=== PATIENT | male | born 1955 | race Hispanic/Latino ===

== ENCOUNTER 2023-12-17 19:22 | Inpatient (IN) | payer MEDICARE ==
[~2023-12-17] VITALS: Ht 170.2 cm; Wt 67.0 kg
--- NOTE | 2023-12-17 19:53 | ERN ---
General Chief Complaint: Weakness Stated Complaint: LETHARGY, WEAKNESS Time Seen by MD: 19:35 Source: patient History of Present Illness Initial Comments Patient is a 68-year-old male brought in by EMS secondary to his generalized body weakness and diarrhea. Per family member at bedside patient has a extensive history of mental retardation, cerebral palsy. Per family member ady robles has been having episodes of watery stools and has been declining slowly. Allergies: Coded Allergies: fluconazole (Unverified Allergy, Unknown, 12/17/23) metronidazole (Unverified Allergy, Unknown, 12/17/23) omeprazole (Unverified Allergy, Unknown, 12/17/23) Past Medical History Past Medical History: Asthma, High Cholesterol, Hypertension, Hypothyroid, Seizure Medical History Other: IDD Past Surgical History: Other Surgical History Other: COLOSTOMY ROS Dictation Limited review of systems secondary to mental state Physical Exam Physical Exam Dictation VITAL SIGNS: Reviewed. GENERAL APPEARANCE: Disoriented, lethargic, cachectic HEAD AND FACE: Non-traumatic. EYES: PERRL, pink conjunctivas, eyelid no trauma, anterior chamber clear. EARS: Pinnas intact and no signs of trauma or erythema. Ear canals clear and no discharge. TMs no erythema. NOSE: No discharge, no bleeding. OROPHARYNX: Mouth normal, teeth no caries, tongue pink. Pharynx clear, no erythema. Tonsils no exudates, no abscesses noted. Mucous membrane moist. NECK: Supple, non-tender, no thyromegaly, no masses, no JVD, no bruits. BREAST: Deferred. CHEST: No tenderness, no crepitus, no paradoxical movement, no retractions. LUNGS: Clear, well-ventilated, symmetric, no rales, no wheezing, no rhonchi, no stridor, good breath sounds bilaterally. HEART: Regular rate, regular rhythm, no murmur, no gallops. VASCULAR: No peripheral edema. ABDOMEN: Soft, positive bowel sounds, nondistended, no guarding, nontender, no rebound, no masses no hepatomegaly, no splenomegaly, no Robledo's sign, no hernia s. RECTAL: Deferred. GENITAL: Deferred. NEUROLOGICAL: Normal speech, gross motor function intact, gross sensory function intact. MUSCULOSKELETAL: decreased range of motion muscular skeletal system secondary to cerebral palsy EXTREMITIES: Nontender, full range of motion. SKIN: Color pink, dry, no turgor, no rash, no lacerations, no abrasions, no contusions. LYMPHATICS: Deferred. Results Laboratory and Microbiology Lab and Micro Result Laboratory Tests Test 12/17/23 20:17 12/17/23 22:57 White Blood Count 11.8 K/uL (4.8-10.8) H Red Blood Count 4.92 MIL/uL (4.50-6.20) Hemoglobin 16.8 g/dL (14.0-18.0) Hematocrit 46.9 % (42-54) Mean Corpuscular Volume 95.3 fL (79-99) Mean Corpuscular Hemoglobin 34.1 pg (27.0-33.0) H Mean Corpuscular Hemoglobin Concent 35.8 g/dL (32.0-36.0) Red Cell Distribution Width 11.9 % (11.0-15.5) Platelet Count 173 K/uL (130-400) Mean Platelet Volume 9.6 fL (7.5-10.5) Immature Granulocyte % (Auto) 0.3 % (0-1) Neutrophils (%) (Auto) 83.0 % (40.0-77.0) H Lymphocytes (%) (Auto) 10.0 % (21.0-51.0) L Monocytes (%) (Auto) 5.8 % (3.0-13.0) Eosinophils (%) (Auto) 0.6 % (0.0-8.0) Basophils (%) (Auto) 0.3 % (0.0-5.0) Neutrophils # (Auto) 9.8 K/uL (1.8-7.7) H Lymphocytes # (Auto) 1.2 K/uL (1.0-4.8) Monocytes # (Auto) 0.7 K/uL (0.1-1.0) Eosinophils # (Auto) 0.07 K/uL (0.00-0.70) Basophils # (Auto) 0.04 K/uL (0.00-0.20) Absolute Immature Granulocyte (auto 0.04 K/uL (0-1) Nucleated Red Blood Cells 0.0 % (0.0-0.19) White Cell Morphology Comment See comments Total Bilirubin 0.6 mg/dL (0.2-1.0) Direct Bilirubin < 0.1 mg/dL (0.0-0.3) Aspartate Amino Transf (AST/SGOT) 75 U/L (10-37) H Alanine Aminotransferase (ALT/SGPT) 46 U/L (12-78) Alkaline Phosphatase 120 U/L (50-136) Total Protein 8.1 g/dL (6.0-8.3) Albumin 3.0 g/dL (3.5-5.0) L Lipase 14 U/L (16-77) L Sodium Level 118 mmol/L (136-145) L Potassium Level 3.7 mmol/L (3.5-5.1) Chloride Level 87 mmol/L (101-111) *L Carbon Dioxide Level 26 mmol/L (21-32) Blood Urea Nitrogen 50 mg/dL (7-18) H Creatinine 0.8 mg/dL (0.5-1.3) Glomerular Filtration Rate Calc 97 mL/min (>90) Random Glucose 148 mg/dL (70-105) H Total Calcium 8.9 mg/dL (8.5-10.1) Total Creatine Kinase 122 U/L (21-232) Labs Reviewed?: Yes EKG/XRAY/US/CT/MRI EKG Comment 03/17/2023 TIME 8:01 P.M. VENTRICULAR RATE 85 SINUS R[address]M [place] [address] WAVE ELEVATION OR DEPRESSION MDM MDM: Differential diagnosis: Diarrhea, dehydration, hyponatremia Rationale: Tests considered and ordered secondary to shared decision making include: Previous outside records reviewed: Old ER visits. Risk of complication and/or morbidity or mortality of patient management: None Medications-Per medication reconciliation Need for hospitalization: Patient does not meet criteria for hospitalization. Need for emergency major/minor surgery: No There are no social concerns with this patient. Prescription drug management Prescriptions will include symptomatic care Patient's prior external medical records from other ER visits were reviewed by me as indicated. Prior testing and results from previous visits were reviewed. Prior tests were taken into account with medical decision making and resource utilization, independent historian/historians were used to obtain complete medical history. I independently interpreted the test that were performed, results were reviewed by me and considered findings on radiology if ordered. Medical management and examination interpretation discussions were had by me with other qualified healthcare professionals as indicated for the patient's care. PATIENT WILL BE ADMITTED UNDER THE CARE OF HOSPITALIST GROUP FOR ONGOING MANAGEMENT. ED Course Orders Procedure Category Date Status Time Cbc With Differential LAB 12/17/23 Complete 19:38 Urinalysis Profile LAB 12/17/23 Logged 19:38 Stool Panel Gi By Pcr LAB 12/17/23 In Process 19:38 12 Lead Ekg Tracing- EKG 12/17/23 Resulted Technical 19:38 Lactated Ringers PHA 12/17/23 Complete 1000ml (Lactated 20:00 Chest 1vw RAD 12/17/23 Resulted 19:38 Lipase LAB 12/17/23 Complete 19:38 Hepatic Function Panel LAB 12/17/23 Complete 20:17 Basic Metabolic Panel LAB 12/17/23 Complete 20:50 Creatine Kinase, Total LAB 12/17/23 Complete 20:50 0.9%Nacl 1000ml (Ns PHA 12/18/23 Complete 1000ml) 00:00 Vital Signs(Adult CPOE 12/18/23 Transmitted Hospitalist) 00:02 Nurse To Enter Home CPOE 12/18/23 Transmitted Medication 00:02 Admit Orders ADM 12/18/23 Transmitted 00:02 Edm Admit Bridge Order ADM 12/18/23 Transmitted 00:02 Current Medications Medications (Trade) Dose Ordered Sig/Gallo Route PRN Reason Start Time Stop Time Status Last Admin Dose Admin Lactated Ringer's 1,000 ml @ 0 mls/hr ONCE ONCE IV 12/17/23 20:00 12/17/23 20:01 DC 12/17/23 21:22 Sodium Chloride 1,000 ml @ 0 mls/hr ONCE ONCE IV 12/18/23 00:00 12/18/23 00:01 DC Vital Signs Date Time Temp Pulse Resp B/P (MAP) Pulse Ox O2 Delivery O2 Flow Rate FiO2 12/17/23 19:24 97.7 101 18 106/95 96 Room Air 0 12/17/23 19:23 97.7 101 18 106/95 96 Room Air* 0 21 DX & DISP Disposition: Inpatient Decision to Admit Time: 00:05 Departure Impression: Primary Impression: Dehydration Additional Impression: Viral gastroenteritis Condition: Stable Referrals: SELF,REFERRAL (PCP) RIA PIMENTEL MD Dec 17, 2023 19:53
--- NOTE | 2023-12-17 20:16 | EKG ---
[facility] Test Date: 2023-12-17 Test Time: 20:01:07 Pat Name: SERENITY LOWE Department: ED Room: Gender: M [employer]: 108 : [id number] Requested By: RIA PIMENTEL Order Number: [id number] Reading MD: Aureliano Garcia Measurements Intervals [place] Rate: 85 P: 66 [place]: 184 QRS: -41 QRSD: 108 T: 168 QT: 335 QTc: 397 Interpretive Statements Sinus rhythm Left axis deviation Low voltage, precordial leads Nonspecific T abnrm, anterolateral leads No previous ECG available for comparison Electronically Signed On 12-17-2023 20:19:32 CDT by Aureliano Garcia Please click the below link to view image of tracing.
[2023-12-17 20:25] LABS: BASOPHILS # (AUTO) 0.04 K/uL (0.00-0.20); BASOPHILS % (AUTO) 0.3 % (0.0-5.0); EOSINOPHILS # (AUTO) 0.07 K/uL (0.00-0.70); EOSINOPHILS % (AUTO) 0.6 % (0.0-8.0); HEMATOCRIT 46.9 % (42-54); IMMATURE GRANULOCYTE ABSOLUTE 0.04 K/uL (0-1); LYMPHOCYTES # (AUTO) 1.2 K/uL (1.0-4.8); MEAN CORPUSCULAR HEMOGLOBIN 34.1 pg (27.0-33.0); MEAN CORPUSCULAR HGB CONC 35.8 g/dL (32.0-36.0); MEAN CORPUSCULAR VOLUME 95.3 fL (79-99); MONOCYTES # (AUTO) 0.7 K/uL (0.1-1.0); MONOCYTES % (AUTO) 5.8 % (3.0-13.0); NEUTROPHILS # (AUTO) 9.8 K/uL (1.8-7.7); PLATELET COUNT (AUTO) 173 K/uL (130-400); RED BLOOD CELL COUNT(AUTO) 4.92 MIL/uL (4.50-6.20); RED CELL DISTRIBUTION WIDTH 11.9 % (11.0-15.5); WHITE BLOOD COUNT (AUTO) 11.8 K/uL (4.8-10.8)
--- NOTE | 2023-12-17 20:43 | HMCIMG ---
CHEST 1VW CLINICAL HISTORY: weakness COMPARISON: None TECHNIQUE: Single view of the chest was obtained. FINDINGS: Lungs are clear. The cardiac size and mediastinum are unremarkable. There is no acute bony abnormality. The patient appears contracted IMPRESSION: No acute cardiopulmonary process identified.
[2023-12-17 21:00] LABS: ALANINE AMINOTRANSFERASE 46 U/L (12-78); ASPARTATE AMINOTRANSFERASE 75 U/L (10-37); BILIRUBIN,TOTAL 0.6 mg/dL (0.2-1.0); TOTAL PROTEIN, SERUM 8.1 g/dL (6.0-8.3)
[2023-12-17 21:04] LABS: BILIRUBIN,DIRECT < 0.1 mg/dL (0.0-0.3)
[2023-12-17] MEDS: LACTATED RINGERS 1000ML 1,000 ML IV ONE (21:22)
[2023-12-17 23:25] LABS: CREATININE 0.8 mg/dL (0.5-1.3); POTASSIUM 3.7 mmol/L (3.5-5.1)
--- NOTE | 2023-12-18 00:01 | HP ---
[facility] HISTORY AND PHYSICAL Date of Service: Dec 18, 2023 Time of Service: 00:00 PCP: Self-referral HISTORY OF PRESENT ILLNESS: This is a 68-year-old male resident of [facility] with past medical history of intellectual developmental disability, cerebral palsy , mental retardation ,anemia, asthma, hyperlipidemia, hypertension, hypothyroidism and seizure disorder who was brought by EMS to the ED for complaints of generalized body weakness, diarrhea and lethargy.Reportedly patient has been having episodes of watery stools and has been becoming weak and lethargic.Information and details are gathered from ER MD and primary nurse and [facility] as patient is unable to give information due to cognitive impairment. Seen and examined patient in the ER asleep but arousable respiration even and nonlabored he is comfortable in apparent distress. Latest vital signs temperature 98.1, heart rate 71, blood pressure 120/67, saturation 100% in room air. Labs: WBC 11.8 with negative left shift of neutrophils 83, hemoglobin 16.8, hematocrit 46.9, platelet count 173. Sodium 118, chloride 87, BUN 50, glucose 148 AST 75 albumin three lipase 14. Chest x-ray result is unremarkable. While in the ER patient received 1 L NS bolus and pending 1 L LR bolus to be given still per ER recommendation. We will recheck BMP and BNP at this time and we will admit patient for further medical management. REVIEW OF SYSTEMS unable to perform patient is nonverbal and lethargic and does not follow commands PAST MEDICAL HISTORY: [Intellectual developmental disability, anemia, Asthma, hyperlipidemia, hyp ertension, hypothyroidism and seizure disorder ] PAST SURGICAL HISTORY: [ Colostomy ] PAST SOCIAL HISTORY: [ Patient is a resident of [facility] negative alcohol, cigarette and recreational drug use] FAMILY HISTORY: [ Noncontributory] Coded Allergies: fluconazole (Unverified Allergy, Unknown, 12/17/23) metronidazole (Unverified Allergy, Unknown, 12/17/23) omeprazole (Unverified Allergy, Unknown, 12/17/23) PHYSICAL EXAM GENERAL APPEARANCE: The patient is asleep but arousable in no acute cardiopulmonary distress. NEUROLOGICAL: Arousable but nonverbal HEENT: Face is symmetric. Pupils are equal and reactive. Extraocular movements are intact. NECK: Supple. No JVD. CHEST: Normal chest expansion. No Telemetry. LUNGS: Absence of any rales, rhonchi or any wheezing. CARDIOVASCULAR: Regular. S1 and S2 normal. No appreciable rubs, murmurs or gallops. ABDOMEN: Positive colostomy Soft, nontender, and nondistended. There is no rebound, voluntary guarding, or rigidity. : Deferred. No Emmanuel. EXTREMITIES: Non-edematous and not cyanotic. No clubbing. Good capillary refill. contracted extremities SKIN: No skin breakdown. Vital Sign (Last 24 Hours) 12/17/23 12/17/23 19:23 19:24 Temp 97.7 Pulse 101 Resp 18 B/P (MAP) 106/95 Pulse Ox 96 O2 Delivery Room Air O2 Flow Rate 0 FiO2 21 LABS: Laboratory: Test 12/17/23 22:57 12/17/23 20:17 Range/Units Sodium Level 118 L 136-145 mmol/L Potassium Level 3.7 3.5-5.1 mmol/L Chloride Level 87 *L 101-111 mmol/L Carbon Dioxide Level 26 21-32 mmol/L Blood Urea Nitrogen 50 H 7-18 mg/dL Creatinine 0.8 0.5-1.3 mg/dL Glomerular Filtration Rate Calc 97 >90 mL/min Random Glucose 148 H 70-105 mg/dL Total Calcium 8.9 8.5-10.1 mg/dL Total Creatine Kinase 122 21-232 U/L White Blood Count 11.8 H 4.8-10.8 K/uL Red Blood Count 4.92 4.50-6.20 MIL/uL Hemoglobin 16.8 14.0-18.0 g/dL Hematocrit 46.9 42-54 % Mean Corpuscular Volume 95.3 79-99 fL Mean Corpuscular Hemoglobin 34.1 H 27.0-33.0 pg Mean Corpuscular Hemoglobin Concent 35.8 32.0-36.0 g/dL Red Cell Distribution Width 11.9 11.0-15.5 % Platelet Count 173 130-400 K/uL Mean Platelet Volume 9.6 7.5-10.5 fL Immature Granulocyte % (Auto) 0.3 0-1 % Neutrophils (%) (Auto) 83.0 H 40.0-77.0 % Lymphocytes (%) (Auto) 10.0 L 21.0-51.0 % Monocytes (%) (Auto) 5.8 3.0-13.0 % Eosinophils (%) (Auto) 0.6 0.0-8.0 % Basophils (%) (Auto) 0.3 0.0-5.0 % Neutrophils # (Auto) 9.8 H 1.8-7.7 K/uL Lymphocytes # (Auto) 1.2 1.0-4.8 K/uL Monocytes # (Auto) 0.7 0.1-1.0 K/uL Eosinophils # (Auto) 0.07 0.00-0.70 K/uL Basophils # (Auto) 0.04 0.00-0.20 K/uL Absolute Immature Granulocyte (auto 0.04 0-1 K/uL Nucleated Red Blood Cells 0.0 0.0-0.19 % White Cell Morphology Comment See comments Total Bilirubin 0.6 0.2-1.0 mg/dL Direct Bilirubin < 0.1 0.0-0.3 mg/dL Aspartate Amino Transf (AST/SGOT) 75 H 10-37 U/L Alanine Aminotransferase (ALT/SGPT) 46 12-78 U/L Alkaline Phosphatase 120 50-136 U/L Total Protein 8.1 6.0-8.3 g/dL Albumin 3.0 L 3.5-5.0 g/dL Lipase 14 L 16-77 U/L DIAGNOSTICS / RADIOLOGY: [ ] ASSESSMENT: Severe hyponatremia most likely due to dehydration POA Suspected gastroenteritis POA Hyperglycemia Functional quadriplegia POA Protein calorie malnutrition POA Colostomy status Intellectual developmental disability POA Anemia POA Asthma POA Hyperlipidemia POA PLAN: We will admit patient in medical telemetry We will keep patient nothing by mouth We will start NS @ 100 ml / hr and re evaluate We will start patient on Rocephin and Flagyl IV for broad-spectrum coverage We will start on Famotidine 20 mg IV bid for GI prophylaxis We will replace electrolytes as needed per protocol We will add prn medication for fever,pain, nausea and vomiting We will reconcile home meds once medlist available We will request labs in am Patient received Fluid resuscitation in the ED (When BNP and BMP were checked the IVF per ER MD 's order was not done yet.Will administer 2nd IVF per ER and will recheck labs after fluid resuscitation per ER is given ) We will request case management service We will request dietary consultation We will request PT eval and treat We will follow-up urinalysis and stool GI panel results Further orders to follow depending on above results Case discussed with attending physician and came up with above treatment and plan of care. ADVANCED CARE PLANNING 1. Which of the following were discussed? Unable to and no family around Hospice Care - Yes / No Therapeutic options - Yes / No Advance Directives - Yes / No Other discussions - 2. Discussed with who? 3. Voluntary nature of this service was explained to the patient? Yes 4. Amount of time spent - _20 5. Reviewed by Physician? (if this service was performed by NPP) Yes Patient seen and examined by me. Agree with note by SEAFOOD FISHERMAN SEE ADDITIONAL ORDERS PER CHART DISCUSSED WITH NURSING STAFF SHI ALONSOP Dec 18, 2023 00:01
[2023-12-18] MEDS ORDERED: CALC-135 PO (00:42)
[2023-12-18] MEDS ORDERED: FOLI1 PO (00:42)
[2023-12-18] MEDS ORDERED: AMLO-258 PO (00:42)
[2023-12-18] MEDS ORDERED: LACT1CAP60 PO (00:42)
[2023-12-18] MEDS ORDERED: PHEN200C5 PO (00:42)
[2023-12-18] MEDS ORDERED: ATOR10TA69 PO (00:42)
[2023-12-18] MEDS ORDERED: ZONI100C87 PO (00:42)
[2023-12-18] MEDS ORDERED: ASPI-1443 PO (00:42)
[2023-12-18] MEDS ORDERED: LEVO112C4 PO (00:42)
[2023-12-18] MEDS ORDERED: SODI100037 PO (00:42)
[2023-12-18] MEDS ORDERED: CARB400T13 PO (00:42)
[2023-12-18] MEDS ORDERED: SIME80TA12 PO (00:42)
[2023-12-18] MEDS ORDERED: TAMS-1 PO (00:42)
[2023-12-18] MEDS ORDERED: CHOL200052 PO (00:42)
[2023-12-18] MEDS ORDERED: CETI10TA57 PO (00:42)
[2023-12-18] MEDS ORDERED: MULT-1367 PO (00:42)
[2023-12-18] MEDS ORDERED: METO25TA6 PO (00:42)
[2023-12-18] MEDS ORDERED: LACT-441 PO (00:42)
[2023-12-18] MEDS ORDERED: CYAN100084 PO (00:42)
[2023-12-18] MEDS: 0.9%NACL 1000ML 1,000 ML IV ONE (01:12)
[2023-12-18 01:56] LABS: CREATININE 0.6 mg/dL (0.5-1.3); POTASSIUM 3.4 mmol/L (3.5-5.1)
[2023-12-18] MEDS ORDERED: ondanSETRON 4MG INJ IV PRN (02:00)
[2023-12-18] MEDS ORDERED: acetaMINOPHEN 325 MG TAB PO PRN ×2 (02:00)
[2023-12-18] MEDS ORDERED: metRONIDazole 500MG/100ML BAG 100 ML IV SCH (02:00)
[2023-12-18 03:10] LABS: APPEARANCE,URINE CLOUDY (CLEAR); BILIRUBIN,URINE NEGATIVE (NEGATIVE); COLOR,URINE YELLOW (YELLOW); GLUCOSE, URINE (UA) NEGATIVE (NEGATIVE); KETONES,URINE NEGATIVE (NEGATIVE); LEUKOCYTE ESTERASE ,URINE 75 Leu/uL (NEGATIVE); NITRATE,URINE NEGATIVE (NEGATIVE); OCCULT BLOOD,URINE MODERATE (NEGATIVE); PROTEIN,URINE 30 mg/dL (NEGATIVE); UROBILINOGEN,URINE 0.2 mg/dL (0.2-1.0)
[2023-12-18 03:11] LABS: ADD UA MICROSCOPIC YES
[2023-12-18 03:14] LABS: BACTERIA,URINE Rare /HPF (None Seen); RBC,URINE 51-100 /HPF (0-1); WBC,URINE 26-50 /HPF (0-1)
[2023-12-18 03:15] LABS: MUCUS,URINE Rare LPF (None Seen); SQUAMOUS EPITHELIAL CELL,UR Rare /HPF (0-2)
[2023-12-18] MEDS: cefTRIAXone 1G VIAL IVPB SCH (03:42)
[2023-12-18] MEDS: 0.9%NACL 1000ML 1,000 ML IV SCH (03:43)
[2023-12-18 07:08] LABS: BASOPHILS # (AUTO) 0.01 K/uL (0.00-0.20); BASOPHILS % (AUTO) 0.1 % (0.0-5.0); EOSINOPHILS % (AUTO) 5.8 % (0.0-8.0); HEMATOCRIT 31.5 % (42-54); IMMATURE GRANULOCYTE ABSOLUTE 0.02 K/uL (0-1); LYMPHOCYTES # (AUTO) 1.4 K/uL (1.0-4.8); LYMPHOCYTES % (AUTO) 15.6 % (21.0-51.0); MEAN CORPUSCULAR HEMOGLOBIN 33.8 pg (27.0-33.0); MEAN CORPUSCULAR HGB CONC 36.5 g/dL (32.0-36.0); MEAN CORPUSCULAR VOLUME 92.6 fL (79-99); MONOCYTES # (AUTO) 0.7 K/uL (0.1-1.0); MONOCYTES % (AUTO) 7.8 % (3.0-13.0); NEUTROPHILS # (AUTO) 6.1 K/uL (1.8-7.7); NEUTROPHILS % (AUTO) 70.5 % (40.0-77.0); PLATELET COUNT (AUTO) 151 K/uL (130-400); RED CELL DISTRIBUTION WIDTH 11.6 % (11.0-15.5); WHITE BLOOD COUNT (AUTO) 8.6 K/uL (4.8-10.8)
[2023-12-18 07:30] LABS: ALBUMIN 2.4 g/dL (3.5-5.0); BILIRUBIN,DIRECT 0.1 mg/dL (0.0-0.3); BILIRUBIN,TOTAL 0.4 mg/dL (0.2-1.0); CREATININE 0.4 mg/dL (0.5-1.3); MAGNESIUM 1.8 mg/dL (1.80-2.40); POTASSIUM 3.4 mmol/L (3.5-5.1); TOTAL PROTEIN, SERUM 5.6 g/dL (6.0-8.3)
[2023-12-18] MEDS: FAMOTIDINE 20MG VIAL IV SCH (09:54)
--- NOTE | 2023-12-18 11:19 | PN ---
[facility] PROGRESS NOTE Date of Service: Dec 18, 2023 Time of Service: 11: SUBJECTIVE: 68-year-old male resident of [facility] with past medical history of intellectual developmental disability, cerebral palsy , mental retardation ,anemia, asthma, hyperlipidemia, hypertension, hypothyroidism and seizure disorder who was brought by EMS to the ED for complaints of generalized body weakness, diarrhea and lethargy.Reportedly patient has been having episodes of watery stools and has been becoming weak and lethargic.Information and details are gathered from ER MD and primary nurse and [facility] as patient is unable to give information due to cognitive impairment. 12/17-patient was seen at the bedside with the sister present. Could not speak to the patient as he was asleep. Vitals stable. Labs WBC 8.6, HB 11.5, [id number] improved from 119, potassium 3.4, chloride 92, BUN 29, creatinine 0.4, GFR 120. UTI positive, procalcitonin 1.13. Urine culture pending. Currently patient is on ceftriaxone1 g every24 hours, 0.9% Na Cl 100 mL/hour. Chest x-ray negative. We will repeat the sodium level, if it is about 130, plan is to send the patient on sodium1 g t.i.d. tablets and Levaquin 250 mg b.i.d. for7 days. REVIEW OF SYSTEMS unable to perform patient is nonverbal and lethargic and does not follow commands PHYSICAL EXAM GENERAL APPEARANCE: The patient is asleep but arousable in no acute cardiopulmonary distress. NEUROLOGICAL: Arousable but nonverbal HEENT: Face is symmetric. Pupils are equal and reactive. Extraocular movements are intact. NECK: Supple. No JVD. CHEST: Normal chest expansion. No Telemetry. LUNGS: Absence of any rales, rhonchi or any wheezing. CARDIOVASCULAR: Regular. S1 and S2 normal. No appreciable rubs, murmurs or gallops. ABDOMEN: Positive colostomy Soft, nontender, and nondistended. There is no rebound, voluntary guarding, or rigidity. : Deferred. No Emmanuel. EXTREMITIES: Non-edematous and not cyanotic. No clubbing. Good capillary refill. contracted extremities SKIN: No skin breakdown. Vital Signs (last 8hr) Date Time Temp Pulse Resp B/P (MAP) Pulse Ox O2 Delivery O2 Flow Rate FiO2 12/18/23 10:38 61 11 139/101 98 Room Air* 0 21 12/18/23 08:59 97.5 53 13 113/65 100 Room Air* 0 21 12/18/23 07:00 58 115/60 98 Room Air* 0 21 12/18/23 06:07 59 12 114/64 100 Room Air* 0 21 12/18/23 03:34 97.9 62 12 110/65 98 Room Air* 0 21 LABS: Laboratory: Test 12/18/23 06:54 12/18/23 02:52 12/18/23 01:25 12/17/23 22:57 Range/Units White Blood Count 8.6 # 4.8-10.8 K/uL Red Blood Count 3.40 #L 4.50-6.20 MIL/uL Hemoglobin 11.5 #L 14.0-18.0 g/dL Hematocrit 31.5 #L 42-54 % Mean Corpuscular Volume 92.6 79-99 fL Mean Corpuscular Hemoglobin 33.8 H 27.0-33.0 pg Mean Corpuscular Hemoglobin Concent 36.5 H 32.0-36.0 g/dL Red Cell Distribution Width 11.6 11.0-15.5 % Platelet Count 151 130-400 K/uL Mean Platelet Volume 9.6 7.5-10.5 fL Immature Granulocyte % (Auto) 0.2 0-1 % Neutrophils (%) (Auto) 70.5 40.0-77.0 % Lymphocytes (%) (Auto) 15.6 L 21.0-51.0 % Monocytes (%) (Auto) 7.8 3.0-13.0 % Eosinophils (%) (Auto) 5.8 0.0-8.0 % Basophils (%) (Auto) 0.1 0.0-5.0 % Neutrophils # (Auto) 6.1 1.8-7.7 K/uL Lymphocytes # (Auto) 1.4 1.0-4.8 K/uL Monocytes # (Auto) 0.7 0.1-1.0 K/uL Eosinophils # (Auto) 0.50 0.00-0.70 K/uL Basophils # (Auto) 0.01 0.00-0.20 K/uL Absolute Immature Granulocyte (auto 0.02 0-1 K/uL Nucleated Red Blood Cells 0.0 0.0-0.19 % Red Blood Cell Morphology See comments Sodium Level 125 L 136-145 mmol/L Potassium Level 3.4 L 3.5-5.1 mmol/L Chloride Level 92 L 101-111 mmol/L Carbon Dioxide Level 26 21-32 mmol/L Blood Urea Nitrogen 29 H 7-18 mg/dL Creatinine 0.4 L 0.5-1.3 mg/dL Glomerular Filtration Rate Calc 120 >90 mL/min Random Glucose 103 70-105 mg/dL Total Calcium 8.0 L 8.5-10.1 mg/dL Magnesium Level 1.80 1.80-2.40 mg/dL Total Bilirubin 0.4 # 0.2-1.0 mg/dL Direct Bilirubin 0.1 0.0-0.3 mg/dL Aspartate Amino Transf (AST/SGOT) 32 10-37 U/L Alanine Aminotransferase (ALT/SGPT) 34 # 12-78 U/L Alkaline Phosphatase 87 # 50-136 U/L Ammonia 16 11-32 umol/L Total Protein 5.6 #L 6.0-8.3 g/dL Albumin 2.4 L 3.5-5.0 g/dL Procalcitonin 1.13 H 0.05-0.5 ng/mL Urine Color YELLOW YELLOW Urine Appearance CLOUDY H CLEAR Urine pH 6.0 5.0-8.0 Urine Specific [place] 1.028 1.001-1.031 Urine Protein 30 H NEGATIVE mg/dL Urine Glucose (UA) NEGATIVE NEGATIVE mg/dL Urine Ketones NEGATIVE NEGATIVE mg/dL Urine Occult Blood MODERATE H NEGATIVE Urine Nitrate NEGATIVE NEGATIVE Urine Bilirubin NEGATIVE NEGATIVE mg/dL Urine Urobilinogen 0.2 0.2-1.0 mg/dL Urine Leukocyte Esterase 75 H NEGATIVE Starr/uL Urine RBC 51-100 H 0-1 /HPF Urine WBC 26-50 H 0-1 /HPF Urine Squamous Epithelial Cells Rare 0-2 /HPF Urine Bacteria Rare None Seen /HPF B-Type Natriuretic Peptide 24 0-100 pg/mL Total Creatine Kinase 122 21-232 U/L Test 12/17/23 20:17 Range/Units White Cell Morphology Comment See comments Lipase 14 L 16-77 U/L Current Medications Medications (Trade) Dose Ordered Sig/Gallo Route PRN Reason Start Time Stop Time Status Last Admin Dose Admin Acetaminophen (TYLenol 325MG TAB) 650 mg Q4H PRN PO MILD PAIN (1-3) 12/18/23 02:00 01/17/24 01:59 Acetaminophen (TYLenol 325MG TAB) 650 mg Q6H PRN PO TEMPERATURE GREATER THAN 101.5 12/18/23 02:00 01/17/24 01:59 Ceftriaxone Sodium (ROCEphine 1G INJ) 1 gm Q24H IVPB 12/18/23 02:00 12/28/23 01:59 12/18/23 03:42 1 GM Famotidine (Pepcid 20mg Vial) 20 mg BID IV 12/18/23 09:00 01/17/24 08:59 12/18/23 09:54 20 MG Metronidazole/ Sodium Chloride 100 ml @ 100 mls/hr Q8H IV 12/18/23 02:00 12/18/23 02:38 DC Ondansetron HCl (zoFRAN 4MG INJ) 4 mg Q6H PRN IV NAUSEA/VOMITING 12/18/23 02:00 01/17/24 01:59 Sodium Chloride 1,000 ml @ 100 mls/hr Q10H IV 12/18/23 02:00 01/17/24 01:59 12/18/23 03:43 100 MLS/HR DIAGNOSTICS / RADIOLOGY: [ ] ASSESSMENT: Severe hyponatremia most likely due to dehydration POA Suspected gastroenteritis POA Hyperglycemia Functional quadriplegia POA Protein calorie malnutrition POA Colostomy status Intellectual developmental disability POA Anemia POA Asthma POA Hyperlipidemia POA PLAN: patient in medical telemetry nothing by mouth continue NS @ 100 ml / hr and re evaluate Won Rocephin and Flagyl IV dc for broad-spectrum coverage on Famotidine 20 mg IV bid for GI prophylaxis We will replace electrolytes as needed per protocol on prn medication for fever,pain, nausea and vomiting reconciled home meds once medlist available We will request labs in am. Patient received Fluid resuscitation in the ED (When BNP and BMP were checked the IVF per ER MD 's order was not done yet.Will administer 2nd IVF per ER and will recheck labs after fluid resuscitation per ER is given ) We will request case management service We will request dietary consultation We will request PT eval and treat We will follow-up urinalysis and stool GI panel results Further orders to follow depending on above results Case discussed with attending physician and came up with above treatment and plan of care. ATTESTATION BY PHYSICIAN I have seen and examined the patient. I reviewed the documentation, medical de cision making, and treatment plan as noted by the resident above. I agree with the findings and plan of care. fadia Barron MD, AISHWARYA MD Dec 18, 2023 11:19
[2023-12-18 13:30] VITALS: BP 114/68; PULSE 65; RESP 16; TEMP 96.5
[2023-12-18] MEDS: PHENYTOIN SODIUM PO SCH (13:45)
[2023-12-18 14:00] VITALS: O2SAT 99
[2023-12-18 16:59] VITALS: BP 115/59; PULSE 59; RESP 16; TEMP 96.2
[2023-12-18] MEDS: PHENYTOIN SODIUM 100 MG ERCAP PO SCH (16:59)
[2023-12-18] MEDS: carBAMazepine ER 200 MG TAB PO SCH (17:20)
[2023-12-18 20:09] VITALS: BP 112/61; PULSE 55; RESP 18; TEMP 97.6
[2023-12-18 20:45] VITALS: O2SAT 97
--- NOTE | 2023-12-18 22:46 | CONS ---
CONSULT NOTE: [facility] # Demographics Consult Type: General Neurology Patient Location: Inpatient First Name: SERENITY Last Name: CHRISSY Date of : 1955 Age: 68 Gender: Male Facility: [facility] Time of Initial Page (Central Time): 12/18/2023, 22:24 Time of Return Call (Central Time): 12/18/2023, 22:24 # HPI History: 68yom with CP, anemia, asthma, seizure disorder (on tegretol, dilantin) who p/w hyponatremia and generalized weakness. Neurology consulted as pt had breakthrough seizure. Family at bedside says his facility is currently weaning his tegretol and replacing with a different medication but they are unsure of the name. # Exam Time of Exam (Central Time): 12/18/2023, 22:30 Vitals: vital signs reviewed Mental Status: - sleepy Language: - global aphasia Cranial Nerves: - normal - extra ocular movements intact Motor: bilateral extremity contractures # Assessment Impression: Recommend weaning off tegretol as this is likely contributing to his hyponatremia, reportedly, his home neurologist is currently already tapering tegretol and replacing with another medication as per family. Would recommend holding for tegretol and calling home neurologist about restarting the AED that was meant to replace it If unable to reach home neurologist, could temporarily start pt on Keppra 1g BID # Plan Labs: - CBC - comprehensive metabolic panel - thiamine - ua - urine drug screen Basic infectious and metabolic workup Magnesium Diagnostic Test: - EEG Dilantin level Medication: Continue home meds, pt reportedly is weaning off tegretol as this can cause hyponatremia. Family at bedside says he is currently on a different AED but they are unaware of the name - would recommend calling his facility to restart this medication and continue pt off tegretol as this can contribute to hyponatremia Other: - If patient has any neurological deterioration please call me back immediately - seizure precautions - Please check serum drug levels as indicated (depakote, dilantin, tegretol) - Please check routine labs and studies to rule out infection or metabolic abnormality (CBC, BMP, LFTs, magnesium, UA, B-HCG, CXR) and treat as appropriate - Give 2 grams IV magnesium sulfate for serum magnesium <= 1.8, optimize other electrolytes - May consider brief course of Ativan as temporizing measure (1 mg BID x 2 days) if provoking factor such as infection, medication noncompliance, or metabolic abnormality is found - Avoid epileptogenic medications such as wellbutrin, cefepime, ultram, quinolones, and imipenum - Seizure precautions, including appropriate state law prohibiting driving, avoiding heights, tubs/swimming pools and standing over open flames # Logistics Attestation of consult completion: The patient is located at: [facility]. Facility staff participated in the visit. I performed this telemedicine visit from my offsite office utilizing interactive 2 way audio and visual telecommunication technology. Total time spent in telemedicine encounter: I spent 28 minutes reviewing clinical data and/or imaging, obtaining history, examining the patient, communicating with the onsite care team, and in preparation of this report. # Demographics First Name: SERENITY Last Name: CHRISSY Facility: [facility] JERI SAMANIEGO MD Dec 18, 2023 22:46
[2023-12-19] VITALS (8 sets, daily range): BP systolic 105–133; BP diastolic 53–75; PULSE 62–103; RESP 18; TEMP 97.5–98.6; O2SAT 96–98
[2023-12-19] MEDS: ASPIRIN 81 MG EC TAB PO SCH (10:00)
[2023-12-19] MEDS: amLODIPine 5 MG TAB PO SCH (10:00)
[2023-12-19] MEDS ORDERED: PoTASSium chl 10% ELIXIR 20MEQ 20 MEQ/15 ML UDCUP PO PRN (10:30)
[2023-12-19] MEDS ORDERED: PoTASSium chloRIDE 20MEQ/100ML 100 ML IV PRN (10:30)
[2023-12-19 10:40] LABS: CREATININE 0.4 mg/dL (0.5-1.3); POTASSIUM 3.7 mmol/L (3.5-5.1)
--- NOTE | 2023-12-19 12:27 | PN ---
[facility] PROGRESS NOTE Date of Service: Dec 19, 2023 Time of Service: 12:23 SUBJECTIVE: 68-year-old male resident of [facility] with past medical history of intellectual developmental disability, cerebral palsy , mental retardation ,anemia, asthma, hyperlipidemia, hypertension, hypothyroidism and seizure disorder who was brought by EMS to the ED for complaints of generalized body weakness, diarrhea and lethargy.Reportedly patient has been having episodes of watery stools and has been becoming weak and lethargic.Information and details are gathered from ER MD and primary nurse and [facility] as patient is unable to give information due to cognitive impairment. 12/17-patient was seen at the bedside with the sister present. Could not speak to the patient as he was asleep. Vitals stable. Labs WBC 8.6, HB 11.5, [id number] improved from 119, potassium 3.4, chloride 92, BUN 29, creatinine 0.4, GFR 120. UTI positive, procalcitonin 1.13. Urine culture pending. Currently patient is on ceftriaxone1 g every24 hours, 0.9% Na Cl 100 mL/hour. Chest x-ray negative. We will repeat the sodium level, if it is about 130, plan is to send the patient on sodium1 g t.i.d. tablets and Levaquin 250 mg b.i.d. for7 days. 12/18 No new problems reported. Patient remains on Tegretol, and Dilantin for seizure management. Patient continues on IVF, NS at 100 mL/hour. Morning labs sodium 129. REVIEW OF SYSTEMS unable to perform patient is nonverbal and lethargic and does not follow commands PHYSICAL EXAM GENERAL APPEARANCE: The patient is asleep but arousable in no acute cardiopulmonary distress. NEUROLOGICAL: Arousable but nonverbal HEENT: Face is symmetric. Pupils are equal and reactive. Extraocular movements are intact. NECK: Supple. No JVD. CHEST: Normal chest expansion. No Telemetry. LUNGS: Absence of any rales, rhonchi or any wheezing. CARDIOVASCULAR: Regular. S1 and S2 normal. No appreciable rubs, murmurs or gallops. ABDOMEN: Positive colostomy Soft, nontender, and nondistended. There is no rebound, voluntary guarding, or rigidity. : Deferred. No Emmanuel. EXTREMITIES: Non-edematous and not cyanotic. No clubbing. Good capillary refill. contracted extremities SKIN: No skin breakdown. Vital Signs (last 8hr) Date Time Temp Pulse Resp B/P (MAP) Pulse Ox O2 Delivery O2 Flow Rate FiO2 12/19/23 11:00 98.1 62 18 125/69 98 Room Air 12/19/23 08:00 98 Room Air* 0 21 12/19/23 07:00 97.5 103 18 133/75 100 Room Air LABS: Laboratory: Test 12/19/23 03:45 12/18/23 06:54 12/18/23 02:52 12/18/23 01:25 Range/Units Sodium Level 129 L 136-145 mmol/L Potassium Level 3.7 3.5-5.1 mmol/L Chloride Level 96 L 101-111 mmol/L Carbon Dioxide Level 25 21-32 mmol/L Blood Urea Nitrogen 10 7-18 mg/dL Creatinine 0.4 L 0.5-1.3 mg/dL Glomerular Filtration Rate Calc 120 >90 mL/min Random Glucose 97 70-105 mg/dL Total Calcium 7.2 L 8.5-10.1 mg/dL Carbamazepine (Tegretol) Level 20.3 *H 4.0-12.0 mcg/mL White Blood Count 8.6 # 4.8-10.8 K/uL Red Blood Count 3.40 #L 4.50-6.20 MIL/uL Hemoglobin 11.5 #L 14.0-18.0 g/dL Hematocrit 31.5 #L 42-54 % Mean Corpuscular Volume 92.6 79-99 fL Mean Corpuscular Hemoglobin 33.8 H 27.0-33.0 pg Mean Corpuscular Hemoglobin Concent 36.5 H 32.0-36.0 g/dL Red Cell Distribution Width 11.6 11.0-15.5 % Platelet Count 151 130-400 K/uL Mean Platelet Volume 9.6 7.5-10.5 fL Immature Granulocyte % (Auto) 0.2 0-1 % Neutrophils (%) (Auto) 70.5 40.0-77.0 % Lymphocytes (%) (Auto) 15.6 L 21.0-51.0 % Monocytes (%) (Auto) 7.8 3.0-13.0 % Eosinophils (%) (Auto) 5.8 0.0-8.0 % Basophils (%) (Auto) 0.1 0.0-5.0 % Neutrophils # (Auto) 6.1 1.8-7.7 K/uL Lymphocytes # (Auto) 1.4 1.0-4.8 K/uL Monocytes # (Auto) 0.7 0.1-1.0 K/uL Eosinophils # (Auto) 0.50 0.00-0.70 K/uL Basophils # (Auto) 0.01 0.00-0.20 K/uL Absolute Immature Granulocyte (auto 0.02 0-1 K/uL Nucleated Red Blood Cells 0.0 0.0-0.19 % Red Blood Cell Morphology See comments Magnesium Level 1.80 1.80-2.40 mg/dL Total Bilirubin 0.4 # 0.2-1.0 mg/dL Direct Bilirubin 0.1 0.0-0.3 mg/dL Aspartate Amino Transf (AST/SGOT) 32 10-37 U/L Alanine Aminotransferase (ALT/SGPT) 34 # 12-78 U/L Alkaline Phosphatase 87 # 50-136 U/L Ammonia 16 11-32 umol/L Total Protein 5.6 #L 6.0-8.3 g/dL Albumin 2.4 L 3.5-5.0 g/dL Procalcitonin 1.13 H 0.05-0.5 ng/mL Urine Color YELLOW YELLOW Urine Appearance CLOUDY H CLEAR Urine pH 6.0 5.0-8.0 Urine Specific Whiteside 1.028 1.001-1.031 Urine Protein 30 H NEGATIVE mg/dL Urine Glucose (UA) NEGATIVE NEGATIVE mg/dL Urine Ketones NEGATIVE NEGATIVE mg/dL Urine Occult Blood MODERATE H NEGATIVE Urine Nitrate NEGATIVE NEGATIVE Urine Bilirubin NEGATIVE NEGATIVE mg/dL Urine Urobilinogen 0.2 0.2-1.0 mg/dL Urine Leukocyte Esterase 75 H NEGATIVE Starr/uL Urine RBC 51-100 H 0-1 /HPF Urine WBC 26-50 H 0-1 /HPF Urine Squamous Epithelial Cells Rare 0-2 /HPF Urine Bacteria Rare None Seen /HPF B-Type Natriuretic Peptide 24 0-100 pg/mL Test 12/17/23 22:57 12/17/23 20:17 Range/Units Total Creatine Kinase 122 21-232 U/L White Cell Morphology Comment See comments Lipase 14 L 16-77 U/L Current Medications Medications (Trade) Dose Ordered Sig/Gallo Route PRN Reason Start Time Stop Time Status Last Admin Dose Admin Acetaminophen (TYLenol 325MG TAB) 650 mg Q4H PRN PO MILD PAIN (1-3) 12/18/23 02:00 01/17/24 01:59 Acetaminophen (TYLenol 325MG TAB) 650 mg Q6H PRN PO TEMPERATURE GREATER THAN 101.5 12/18/23 02:00 01/17/24 01:59 Amlodipine Besylate (NorvASC 5MG TAB) 10 mg DAILY PO 12/19/23 09:00 01/18/24 08:59 12/19/23 10:00 10 MG Aspirin (Aspirin 81mg Ec Tab) 81 mg DAILY PO 12/19/23 09:00 01/18/24 08:59 12/19/23 10:00 81 MG Carbamazepine (TEGRetol ER 200MG TAB) 800 mg BID PO 12/18/23 16:30 01/17/24 16:29 12/18/23 20:45 800 MG Ceftriaxone Sodium (ROCEphine 1G INJ) 1 gm Q24H IVPB 12/18/23 02:00 12/28/23 01:59 12/19/23 01:32 1 GM Famotidine (Pepcid 20mg Vial) 20 mg BID IV 12/18/23 09:00 01/17/24 08:59 12/18/23 20:45 20 MG Home Med (Home Medication) (Phenytoin Sodium Exten... TID PO 12/18/23 14:00 12/18/23 16:24 DC Metronidazole/ Sodium Chloride 100 ml @ 100 mls/hr Q8H IV 12/18/23 02:00 12/18/23 02:38 DC Ondansetron HCl (zoFRAN 4MG INJ) 4 mg Q6H PRN IV NAUSEA/VOMITING 12/18/23 02:00 01/17/24 01:59 Phenytoin Sodium (Dilantin 100mg Er Cap) 200 mg TID PO 12/18/23 16:30 01/17/24 16:29 12/19/23 10:00 200 MG Potassium Chloride 100 ml @ 100 mls/hr AD PRN IV POTASSIUM PROTOCOL 12/19/23 10:30 01/18/24 10:29 Potassium Chloride (K-Dur/Klor-Con 20meq) 20 meq AD PRN PO POTASSIUM PROTOCOL 12/19/23 10:30 01/18/24 10:29 Potassium Chloride (KCl 10% Elixir 20meq/15ml) 20 meq AD PRN PO POTASSIUM PROTOCOL 12/19/23 10:30 01/18/24 10:29 Sodium Chloride 1,000 ml @ 100 mls/hr Q10H IV 12/18/23 02:00 01/17/24 01:59 12/18/23 23:11 100 MLS/HR DIAGNOSTICS / RADIOLOGY: [ ] ASSESSMENT: Severe hyponatremia most likely due to dehydration POA Suspected gastroenteritis POA Hyperglycemia Functional quadriplegia POA Protein calorie malnutrition POA Colostomy status Intellectual developmental disability POA Anemia POA Asthma POA Hyperlipidemia POA PLAN: patient in medical telemetry Continue regular diet EEG pending continue NS @ 100 ml / hr and follow up Chem seven in a.m. Continue Rocephin for broad-spectrum coverage on Famotidine 20 mg IV bid for GI prophylaxis We will replace electrolytes as needed per protocol on prn medication for fever,pain, nausea and vomiting We will request labs in am. We will request case management service We will request dietary consultation We will request PT eval and treat We will follow-up urinalysis and stool GI panel results Further orders to follow depending on above results Likely DC home in a.m. Case discussed with attending physician and came up with above treatment and plan of care. KM RUTH Dec 19, 2023 12:27
[2023-12-19 13:49] LABS: CREATININE 0.5 mg/dL (0.5-1.3); POTASSIUM 3.4 mmol/L (3.5-5.1)
[2023-12-19] MEDS: PoTASSium chloRIDE 20MEQ ER 20 MEQ ERTAB PO PRN (14:13)
[2023-12-20] VITALS (8 sets, daily range): BP systolic 98–144; BP diastolic 56–82; PULSE 50–65; RESP 16–18; TEMP 98.1–98.8; O2SAT 98
[2023-12-20 12:47] LABS: BASOPHILS # (AUTO) 0.01 K/uL (0.00-0.20); BASOPHILS % (AUTO) 0.2 % (0.0-5.0); EOSINOPHILS # (AUTO) 0.39 K/uL (0.00-0.70); EOSINOPHILS % (AUTO) 7.4 % (0.0-8.0); HEMATOCRIT 32.9 % (42-54); IMMATURE GRANULOCYTE ABSOLUTE 0.03 K/uL (0-1); LYMPHOCYTES # (AUTO) 1.5 K/uL (1.0-4.8); LYMPHOCYTES % (AUTO) 28.8 % (21.0-51.0); MEAN CORPUSCULAR HEMOGLOBIN 33.3 pg (27.0-33.0); MEAN CORPUSCULAR VOLUME 95.4 fL (79-99); MONOCYTES # (AUTO) 0.4 K/uL (0.1-1.0); MONOCYTES % (AUTO) 6.7 % (3.0-13.0); NEUTROPHILS % (AUTO) 56.3 % (40.0-77.0); PLATELET COUNT (AUTO) 157 K/uL (130-400); RED BLOOD CELL COUNT(AUTO) 3.45 MIL/uL (4.50-6.20); RED CELL DISTRIBUTION WIDTH 11.4 % (11.0-15.5); WHITE BLOOD COUNT (AUTO) 5.2 K/uL (4.8-10.8)
[2023-12-20 13:03] LABS: ALBUMIN 2.4 g/dL (3.5-5.0); BILIRUBIN,TOTAL 0.1 mg/dL (0.2-1.0); CREATININE 0.4 mg/dL (0.5-1.3); MAGNESIUM 1.5 mg/dL (1.80-2.40); POTASSIUM 3.6 mmol/L (3.5-5.1); TOTAL PROTEIN, SERUM 6.1 g/dL (6.0-8.3)
[2023-12-20 13:16] LABS: CARBAMAZEPINE (TEGRETOL) 3.6 mcg/mL (4.0-12.0)
--- NOTE | 2023-12-20 13:24 | PN ---
[facility] PROGRESS NOTE Date of Service: Dec 20, 2023 Time of Service: 13:[address] Barron SUBJECTIVE: 68-year-old male resident of [facility] with past medical history of intellectual developmental disability, cerebral palsy , mental retardation ,anemia, asthma, hyperlipidemia, hypertension, hypothyroidism and seizure disorder who was brought by EMS to the ED for complaints of generalized body weakness, diarrhea and lethargy.Reportedly patient has been having episodes of watery stools and has been becoming weak and lethargic.Information and details are gathered from ER MD and primary nurse and [facility] as patient is unable to give information due to cognitive impairment. 12/17-patient was seen at the bedside with the sister present. Could not speak to the patient as he was asleep. Vitals stable. Labs WBC 8.6, HB 11.5, [id number] improved from 119, potassium 3.4, chloride 92, BUN 29, creatinine 0.4, GFR 120. UTI positive, procalcitonin 1.13. Urine culture pending. Currently patient is on ceftriaxone1 g every24 hours, 0.9% Na Cl 100 mL/hour. Chest x-ray negative. We will repeat the sodium level, if it is about 130, plan is to send the patient on sodium1 g t.i.d. tablets and Levaquin 250 mg b.i.d. for7 days. 12/18 No new problems reported. Patient remains on Tegretol, and Dilantin for seizure management. Patient continues on IVF, NS at 100 mL/hour. Morning labs sodium 129. 12/19 patient was seen by nurse practitioner and physician during rounding comfortably lying in the bed. Sister at the bedside. Per [facility] EEG was performed and that is pending reading. We will reconsult grace fiore to read the EEG and we will further recommendations for seizure medications outpatient. Today sodium is 129 and magnesium is 1.5 we will be replaced with 2 g of magnesium. Anticipated discharge within 24 hours once electrolytes will be replaced and we have final recommendation by macarena chowdhury and results of EEG. A.m. labs REVIEW OF SYSTEMS unable to perform patient is nonverbal and lethargic and does not follow commands PHYSICAL EXAM GENERAL APPEARANCE: The patient is asleep but arousable in no acute cardiopulmonary distress. NEUROLOGICAL: Arousable but nonverbal HEENT: Face is symmetric. Pupils are equal and reactive. Extraocular movements are intact. NECK: Supple. No JVD. CHEST: Normal chest expansion. No Telemetry. LUNGS: Absence of any rales, rhonchi or any wheezing. CARDIOVASCULAR: Regular. S1 and S2 normal. No appreciable rubs, murmurs or gallops. ABDOMEN: Positive colostomy Soft, nontender, and nondistended. There is no rebound, voluntary guarding, or rigidity. : Deferred. No Emmanuel. EXTREMITIES: Non-edematous and not cyanotic. No clubbing. Good capillary refill. contracted extremities SKIN: No skin breakdown. Vital Signs (last 8hr) Date Time Temp Pulse Resp B/P (MAP) Pulse Ox O2 Delivery O2 Flow Rate FiO2 12/20/23 11:51 98.8 55 18 128/70 97 Room Air 12/20/23 07:56 98 Room Air* 0 21 12/20/23 07:47 98.8 50 18 117/70 96 Room Air LABS: Laboratory: Test 12/20/23 12:30 12/20/23 03:49 12/19/23 13:25 Range/Units White Blood Count 5.2 4.8-10.8 K/uL Red Blood Count 3.45 L 4.50-6.20 MIL/uL Hemoglobin 11.5 L 14.0-18.0 g/dL Hematocrit 32.9 L 42-54 % Mean Corpuscular Volume 95.4 79-99 fL Mean Corpuscular Hemoglobin 33.3 H 27.0-33.0 pg Mean Corpuscular Hemoglobin Concent 35.0 32.0-36.0 g/dL Red Cell Distribution Width 11.4 11.0-15.5 % Platelet Count 157 130-400 K/uL Mean Platelet Volume 9.1 7.5-10.5 fL Immature Granulocyte % (Auto) 0.6 0-1 % Neutrophils (%) (Auto) 56.3 40.0-77.0 % Lymphocytes (%) (Auto) 28.8 21.0-51.0 % Monocytes (%) (Auto) 6.7 3.0-13.0 % Eosinophils (%) (Auto) 7.4 0.0-8.0 % Basophils (%) (Auto) 0.2 0.0-5.0 % Neutrophils # (Auto) 3.0 1.8-7.7 K/uL Lymphocytes # (Auto) 1.5 1.0-4.8 K/uL Monocytes # (Auto) 0.4 0.1-1.0 K/uL Eosinophils # (Auto) 0.39 0.00-0.70 K/uL Basophils # (Auto) 0.01 0.00-0.20 K/uL Absolute Immature Granulocyte (auto 0.03 0-1 K/uL Nucleated Red Blood Cells 0.0 0.0-0.19 % Sodium Level 129 L 136-145 mmol/L Potassium Level 3.6 3.5-5.1 mmol/L Chloride Level 97 L 101-111 mmol/L Carbon Dioxide Level 28 21-32 mmol/L Blood Urea Nitrogen 5 L 7-18 mg/dL Creatinine 0.4 L 0.5-1.3 mg/dL Glomerular Filtration Rate Calc 120 >90 mL/min Random Glucose 89 70-105 mg/dL Total Calcium 7.0 L 8.5-10.1 mg/dL Magnesium Level 1.50 L 1.80-2.40 mg/dL Total Bilirubin 0.1 L 0.2-1.0 mg/dL Aspartate Amino Transf (AST/SGOT) 83 H 10-37 U/L Alanine Aminotransferase (ALT/SGPT) 81 H 12-78 U/L Alkaline Phosphatase 121 50-136 U/L Total Protein 6.1 6.0-8.3 g/dL Albumin 2.4 L 3.5-5.0 g/dL Carbamazepine (Tegretol) Level 3.6 L 4.0-12.0 mcg/mL Vitamin D 25-Hydroxy 42.6 30.0-100.0 ng/mL Vitamin B12 Level 2850 H 193-986 pg/mL Current Medications Medications (Trade) Dose Ordered Sig/Gallo Route PRN Reason Start Time Stop Time Status Last Admin Dose Admin Acetaminophen (TYLenol 325MG TAB) 650 mg Q4H PRN PO MILD PAIN (1-3) 12/18/23 02:00 01/17/24 01:59 Acetaminophen (TYLenol 325MG TAB) 650 mg Q6H PRN PO TEMPERATURE GREATER THAN 101.5 12/18/23 02:00 01/17/24 01:59 Amlodipine Besylate (NorvASC 5MG TAB) 10 mg DAILY PO 12/19/23 09:00 01/18/24 08:59 12/20/23 09:17 10 MG Aspirin (Aspirin 81mg Ec Tab) 81 mg DAILY PO 12/19/23 09:00 01/18/24 08:59 12/20/23 09:17 81 MG Carbamazepine (TEGRetol ER 200MG TAB) 800 mg BID PO 12/18/23 16:30 01/17/24 16:29 12/18/23 20:45 800 MG Ceftriaxone Sodium (ROCEphine 1G INJ) 1 gm Q24H IVPB 12/18/23 02:00 12/28/23 01:59 12/20/23 02:02 1 GM Famotidine (Pepcid 20mg Vial) 20 mg BID IV 12/18/23 09:00 01/17/24 08:59 12/20/23 09:17 20 MG Home Med (Home Medication) (Phenytoin Sodium Exten... TID PO 12/18/23 14:00 12/18/23 16:24 DC Magnesium Sulfate 50 ml @ 0 mls/hr PROTOCOL IV 12/20/23 13:30 01/19/24 13:29 UNV Metronidazole/ Sodium Chloride 100 ml @ 100 mls/hr Q8H IV 12/18/23 02:00 12/18/23 02:38 DC Ondansetron HCl (zoFRAN 4MG INJ) 4 mg Q6H PRN IV NAUSEA/VOMITING 12/18/23 02:00 01/17/24 01:59 Phenytoin Sodium (Dilantin 100mg Er Cap) 200 mg TID PO 12/18/23 16:30 01/17/24 16:29 12/20/23 09:17 200 MG Potassium Chloride 100 ml @ 100 mls/hr AD PRN IV POTASSIUM PROTOCOL 12/19/23 10:30 01/18/24 10:29 Potassium Chloride (K-Dur/Klor-Con 20meq) 20 meq AD PRN PO POTASSIUM PROTOCOL 12/19/23 10:30 01/18/24 10:29 12/19/23 14:13 20 MEQ Potassium Chloride (KCl 10% Elixir 20meq/15ml) 20 meq AD PRN PO POTASSIUM PROTOCOL 12/19/23 10:30 01/18/24 10:29 Sodium Chloride 1,000 ml @ 100 mls/hr Q10H IV 11/1/24 02:00 01/17/24 01:59 12/20/23 03:57 100 MLS/HR DIAGNOSTICS / RADIOLOGY: [ ] ASSESSMENT: Electrolyte imbalance, Severe hyponatremia Na 118 most likely due to dehydration POA Electrolyte imbalance hypokalemia K 3.6, hypomagnesemia mg 1.5 Acute dehydration POA Suspected gastroenteritis POA Uncontrolled diabetes mellitus type 2 with hypoglycemia POA Functional quadriplegia POA Protein calorie malnutrition POA Colostomy status Uncontrolled hypertension Intellectual developmental disability POA Acute Multifactorial Anemia POA Asthma not acute POA Hyperlipidemia POA PLAN: patient in medical telemetry Continue regular diet EEG pending results continue NS @ 100 ml / hr A.m. labs Continue Rocephin for broad-spectrum coverage Final urine culture negative on Famotidine 20 mg IV bid for GI prophylaxis We will replace electrolytes as needed per protocol on prn medication for fever,pain, nausea and vomiting We will request labs in am. We will request case management service We will request dietary consultation We will request PT eval and treat We will follow-up urinalysis and stool GI panel results Further orders to follow depending on above results Likely DC home in a.m. Case discussed with attending physician and came up with above treatment and plan of care. ATTESTATION BY PHYSICIAN I have seen and examined the patient. I reviewed the documentation, medical decision making, and treatment plan as noted by the mid-level provider above. I agree with the findings and plan of care. Cole Barron MD, KATARZYNA B DE ICER Dec 20, 2023 13:24
[2023-12-20] MEDS: SODIUM CHLORIDE 1,000 MG TAB PO ONE (14:15)
[2023-12-20] MEDS: PoTASSium chloRIDE 20MEQ ER 20 MEQ ERTAB PO ONE (14:15)
[2023-12-20] MEDS: MAGNESIUM 2GM PREMIX 50ML 50 ML IV SCH (14:16)
--- NOTE | 2023-12-20 14:21 | PRN ---
Procedure Note [facility] EEG Note # Demographics Type of EEG Read: - Routine EEG - without video Patient Location: Inpatient First Name: SERENITY Last Name: CHRISSY Date of : 1955 Age: 68 Gender: Male Facility: [facility] Time of Initial Page (Central Time): 12/20/2023, 09:49 Time of Return Call (Central Time): 12/20/2023, 09:49 # EEG Interpretation Start Time of EEG Read (Central Time): 12/20/2023, 08:49 Stop Time of EEG Read (Central Time): 12/20/2023, 09:09 Duration: 0h 20m Technical Details: - The EEG electrodes were placed using the standard International 10-20 system of electrode placement. An accessory EKG lead was used during the course of this study. - This study was recorded using the [employer] EEG software Indication: - seizure # Description Photic Stimulation: NOT Performed Phases Captured: - drowsy - awake Symmetry: symmetric Posterior Dominant Rhythm: absent Predominant Frequencies: There is an excess of generalized theta slowing of the background. Amplitude: normal Reactivity: yes Variability: yes Continuity: continuous EKG: NSR # Abnormalities Epileptiform Abnormalities: - NOT present Focal Slowing: no Seizure: - NOT present # Impression Impression: abnormal 1. Mild diffuse slowing # Clinical Correlation Clinical Correlation: 1. Diffuse slowing is non-specific and may be seen in the setting of diffuse cerebral dysfunction; such as toxic/metabolic/infectious encephalopathy or heavily sedating medication use. # Logistics Telemedicine: remote EEG review: EEG reviewed remotely # Demographics First Name: SERENITY Last Name: CHRISSY Facility: [facility] Electronically signed at 12/20/2023 14:21 (Central Time) by MD TAD Vazquez JAMAL F MD Dec 20, 2023 14:21
[2023-12-20 15:09] LABS: C DIFFICILE TOXIN A/B Not Detected (Not Detected); ENTEROAGGREGATIVE ECOLI Not Detected (Not Detected); GIARDIA LAMBLIA Not Detected (Not Detected); PLESIOMONAS SHIGELOIDES Not Detected (Not Detected); SAPOVIRUS Not Detected (Not Detected); SHIGELLA/ENTEROINVASIVE E COLI Not Detected (Not Detected); VIBRIO Not Detected (Not Detected); VIBRIO CHOLERAE Not Detected (Not Detected)
[2023-12-20] MEDS: leveTIRACEtam 500 MG TABLET PO SCH (18:14)
[2023-12-21] VITALS (9 sets, daily range): BP systolic 100–123; BP diastolic 55–72; PULSE 44–81; RESP 16–20; TEMP 97.1–99.2; O2SAT 95–99
[2023-12-21 07:28] LABS: BASOPHILS # (AUTO) 0.01 K/uL (0.00-0.20); BASOPHILS % (AUTO) 0.2 % (0.0-5.0); EOSINOPHILS # (AUTO) 0.42 K/uL (0.00-0.70); EOSINOPHILS % (AUTO) 6.5 % (0.0-8.0); IMMATURE GRANULOCYTE ABSOLUTE 0.03 K/uL (0-1); LYMPHOCYTES # (AUTO) 1.2 K/uL (1.0-4.8); LYMPHOCYTES % (AUTO) 18.9 % (21.0-51.0); MEAN CORPUSCULAR HGB CONC 35.5 g/dL (32.0-36.0); MEAN CORPUSCULAR VOLUME 95.7 fL (79-99); MONOCYTES # (AUTO) 0.4 K/uL (0.1-1.0); MONOCYTES % (AUTO) 5.8 % (3.0-13.0); NEUTROPHILS # (AUTO) 4.4 K/uL (1.8-7.7); NEUTROPHILS % (AUTO) 68.1 % (40.0-77.0); PLATELET COUNT (AUTO) 184 K/uL (130-400); RED BLOOD CELL COUNT(AUTO) 3.24 MIL/uL (4.50-6.20); RED CELL DISTRIBUTION WIDTH 11.5 % (11.0-15.5); WHITE BLOOD COUNT (AUTO) 6.5 K/uL (4.8-10.8)
[2023-12-21 07:32] LABS: CREATININE 0.4 mg/dL (0.5-1.3); POTASSIUM 3.9 mmol/L (3.5-5.1)
[2023-12-21] MEDS ORDERED: LEVE-43 PO (08:39)
[2023-12-21] MEDS ORDERED: AMOX1TAB16 PO (08:39)
[2023-12-21] MEDS ORDERED: PHEN100C10 PO (08:39)
--- NOTE | 2023-12-21 08:45 | DS ---
Discharge Summary Hospital Course Summary: DATE OF ADMISSION:[12/18/2023] DATE OF DISCHARGE:[12/21/2023] DISPOSITION:[[facility]] CONDITION:[Medically stable] CONSULTANTS:[Neurologist] FOLLOW UP APPOINTMENTS:[PCP 2 to 3 days. Neurologist 2 to 3 days] PROCEDURES:[EEG negative] IMAGING: report attached to summary MICROBIOLOGY: report attached to summary ACTIVITY:[Bed-bound] HOME MEDICATIONS: see [facility] NEW MEDICATIONS:[See medication reconciliation] EMERGENCY INSTRUCTIONS: The patient was instructed to present to the nearest Emergency departmentr or call 911 once their symptoms will return or worsen Pencils Washer(s): SUBJECTIVE: 68-year-old male resident of [facility] with past medical history of intellectual developmental disability, cerebral palsy , mental retardation ,anemia, asthma, hyperlipidemia, hypertension, hypothyroidism and seizure disorder who was brought by EMS to the ED for complaints of generalized body weakness, diarrhea and lethargy.Reportedly patient has been having episodes of watery stools and has been becoming weak and lethargic.Information and details are gathered from ER MD and primary nurse and [facility] as patient is unable to give information due to cognitive impairment. 12/17-patient was seen at the bedside with the sister present. Could not speak to the patient as he was asleep. Vitals stable. Labs WBC 8.6, HB 11.5, [id number] improved from 119, potassium 3.4, chloride 92, BUN 29, creatinine 0.4, GFR 120. UTI positive, procalcitonin 1.13. Urine culture pending. Currently patient is on ceftriaxone1 g every24 hours, 0.9% Na Cl 100 mL/hour. Chest x-ray negative. We will repeat the sodium level, if it is about 130, plan is to send the patient on sodium1 g t.i.d. tablets and Levaquin 250 mg b.i.d. for7 days. 12/18 No new problems reported. Patient remains on Tegretol, and Dilantin for seizure management. Patient continues on IVF, NS at 100 mL/hour. Morning labs sodium 129. 12/19 patient was seen by nurse practitioner and physician during rounding comfortably lying in the bed. Sister at the bedside. Per grace duttony Neurology EEG was performed and that is pending reading. We will reconsult blue macarena to read the EEG and we will further recommendations for seizure medications outpatient. Today sodium is 129 and magnesium is 1.5 we will be replaced with 2 g of magnesium. Anticipated discharge within 24 hours once electrolytes will be replaced and we have final recommendation by macarena chowdhury and results of EEG. A.m. labs 12/20 patient was seen by nurse practitioner and physician during rounding. Family members at the bedside. Nurse practitioner reach out to grace chowdhury regarding the results of EEG which was negative. We also spoke regards recommended medications and per neuro they recommend to discontinue carbamazepine since patient becomes very hyponatremic and switched to Keppra 1000 mg p.o. b.i.d.. Family at the bedside is refusing switching the medicine unless nurse practitioner H out to Dr. Ramey and consult that with him. Nurse practitioner spoke with Dr. Ramey from [facility] and spoke r jenifer discontinuing carbamazepine and starting Keppra 1000 mg p.o. b.i.d. Was agree with further recommendation which he stated he wanted to do with for the past long period of time but unfortunately family was also refusing. Nurse practitioner came back to the room and explained to the family importance of switching the medicines at this moment. Today patient is doing much better sodium is already 133 potassium 3.9 and no seizures noted since past four days. Patient is cleared to be discharged back to home which is [facility]. Follow-up with PCP in 2 to 3 days. Follow up with neurologist in 2 to 3 days. Procedure(s): REVIEW OF SYSTEMS unable to perform patient is nonverbal and lethargic and does not follow commands PHYSICAL EXAM GENERAL APPEARANCE: The patient is asleep but arousable in no acute cardiopulmonary distress. NEUROLOGICAL: Arousable but nonverbal HEENT: Face is symmetric. Pupils are equal and reactive. Extraocular movements are intact. NECK: Supple. No JVD. CHEST: Normal chest expansion. No Telemetry. LUNGS: Absence of any rales, rhonchi or any wheezing. CARDIOVASCULAR: Regular. S1 and S2 normal. No appreciable rubs, murmurs or gallops. ABDOMEN: Positive colostomy Soft, nontender, and nondistended. There is no rebound, voluntary guarding, or rigidity. : Deferred. No Emmanuel. EXTREMITIES: Non-edematous and not cyanotic. No clubbing. Good capillary refill. contracted extremities SKIN: No skin breakdown. Assessment/Plan: ASSESSMENT: Electrolyte imbalance, Severe hyponatremia Na 118 most likely due to dehydration POA Electrolyte imbalance hypokalemia K 3.6, hypomagnesemia mg 1.5 Acute dehydration POA Suspected gastroenteritis POA Uncontrolled diabetes mellitus type 2 with hypoglycemia POA Functional quadriplegia POA Protein calorie malnutrition POA Colostomy status Uncontrolled hypertension Intellectual developmental disability POA Acute Multifactorial Anemia POA Asthma not acute POA Hyperlipidemia POA Home Medications: Reported Medications Zonisamide (Zonisamide) 100 Mg Capsule, 3 CAP PO BID for 30 Days, #60 CAP 0 Refills 12/18/23 Cholecalciferol (Vitamin D3) (Vitamin D3) 50 Mcg (2000 Unit) Tablet, 2 TAB PO DAILY for 30 Days, #30 TAB 0 Refills 12/18/23 Tamsulosin HCl (Flomax) 0.4 Mg Cap.er.24h, 1 CAP PO QODAY for 30 Days, #30 CAP 0 Refills 12/18/23 Sodium Chloride (Sodium Chloride) 1,000 Mg Tab, 1000 MG PO BID, TAB 12/18/23 Simethicone (Simethicone) 80 Mg Tab.chew, 1 TAB PO TID for gas for 6 Days, #20 TAB 0 Refills 12/18/23 Phenytoin Sodium Extended (Phenytoin Sodium Extended) 200 Mg Capsule, 1 CAP PO TID for 30 Days, #60 CAP 0 Refills 12/18/23 Multivitamin (Multivitamin) 1 Each Tablet, 1 TAB PO DAILY for 30 Days, #30 TAB 0 Refills 12/18/23 Metoprolol Tartrate (Metoprolol Tartrate) 25 Mg Tablet, 1 TAB PO BID for 30 Days, #60 TAB 0 Refills 12/18/23 Levothyroxine Sodium (Levothyroxine) 112 Mcg Capsule, 1 CAP PO DAILY for 30 Days, #30 CAP 0 Refills 12/18/23 Lactulose (Lactulose) 10 Gram/15 Ml Solution, 30 ML PO BID for constipation, #500 ML 0 Refills 12/18/23 L. Rhamnosus GG/Inulin (Culturelle Capsule) 10 Billion Cell-200 Mg Cap.sprink, 1 CAP PO DAILY for 30 Days, #30 CAP 0 Refills 12/18/23 Folic Acid (Folvite) 1 Mg Tab, 1 TAB PO DAILY for 30 Days, #30 TAB 0 Refills 12/18/23 Cyanocobalamin (Vitamin B-12) (B-12) 1,000 Mcg Tablet.er, 1 TAB PO DAILY for 30 Days, #30 TAB 0 Refills 12/18/23 Cetirizine HCl (Cetirizine HCl) 10 Mg Tablet, 1 TAB PO DAILY for allergy symptoms for 30 Days, #30 TAB 0 Refills 12/18/23 Calcium Citrate/Vitamin D3 (Calcium Citrate - Vit D Tablet) 315 Mg Calcium-5 Mcg (200 Unit) Tablet, 1 EACH PO DAILYDINNER, TAB 12/18/23 Carbamazepine (Carbamazepine ER) 400 Mg Tab.er.12h, 2 TAB PO BID for 30 Days, #60 TAB 0 Refills 12/18/23 Atorvastatin Calcium (Atorvastatin Calcium) 10 Mg Tablet, 1 TAB PO HS for 30 Days, #30 TAB 0 Refills 12/18/23 Aspirin (Aspirin EC) 81 Mg Tablet.dr, 1 TAB PO DAILY for 30 Days, #30 TAB 0 Refills 12/18/23 Amlodipine Besylate (Amlodipine Besylate) 10 Mg Tablet, 1 TAB PO DAILY for 30 Days, #30 TAB 0 Refills 12/18/23 Time spent arranging discharge: 31-60 minutes ATTESTATION BY PHYSICIAN I have seen and examined the patient. I reviewed the documentation, medical decision making, and treatment plan as noted by the mid-level provider above. I agree with the findings and plan of care. JOE KRISHNA MD, [facility] Dec 21, 2023 08:45
[2023-12-21 13:13] LABS: AMYLASE 99 U/L (25-115)
--- NOTE | 2023-12-21 15:32 | HMCIMG ---
CT ABDOMEN/PELVIS W/O CONTRAST HISTORY: Vomiting COMPARISON: None TECHNIQUE: Multiple sequential axial images of the abdomen and pelvis were obtained from the dome of the diaphragm through symphysis pubis. Patient was not given contrast through intravenous route. Oral contrast was not given. FINDINGS: The study is limited due to patient's underlying body habitus. Tiny left pleural effusion is seen with subsegmental atelectasis. Mild left lower lung pulmonary infiltrates are seen. There is gastric distention. Small bowel dilatation is seen. There appears to be portal venous air. Degenerative changes of the thoracolumbar spine are present. The heart is not enlarged. There is gastric distention. Small bowel dilatation is seen. There appears to be portal venous air. Findings may be related to ischemic process and clinical correlation is recommended. Extensive small bowel dilatation is seen. Colonic distention is also seen. The liver, spleen, adrenal glands and pancreas are unremarkable. There is no evidence of hydronephrosis bilaterally. Tiny bilateral renal pelvic stones are seen. Fecal material is seen in the colon. There is diverticulosis. There are normal size retroperitoneal and mesenteric lymph nodes. No ascites is seen. Atherosclerotic changes are present. Pelvic sidewalls are symmetric bilaterally. Bladder is markedly distended with bladder stones. IMPRESSION: 1. Limited study due to patient's underlying condition body habitus. Gastric distention with small bowel dilatation and colonic distention noted. Fecal material is seen in the colon. Small bilateral renal pelvic stones are seen. Intrahepatic portal venous air is seen related to ischemic process. Bladder stones are seen. CT was performed with one or more following dose reduction techniques: automated exposure control, adjustment of the mA and kv according to patient's size, or use of a iterative reconstruction technique.
[2023-12-21] MEDS ORDERED: SIMETHICONE 40 MG/0.6 ML ML PO PRN (17:00)
[2023-12-21] MEDS: LACTULOSE 20 GM/30 ML UDCUP PO ONE (17:45)
[2023-12-21] MEDS: SIMETHICONE 80 MG TAB.CHEW PO PRN (17:46)
[2023-12-22 03:24] VITALS: BP 120/60; PULSE 65; RESP 16; TEMP 98.8
[2023-12-22 08:00] VITALS: BP 129/63; PULSE 58; RESP 18; TEMP 98.4; O2SAT 96
[2023-12-22 08:41] LABS: HEMATOCRIT 30.6 % (42-54); MEAN CORPUSCULAR HEMOGLOBIN 33.8 pg (27.0-33.0); MEAN CORPUSCULAR VOLUME 96.5 fL (79-99); RED BLOOD CELL COUNT(AUTO) 3.17 MIL/uL (4.50-6.20); RED CELL DISTRIBUTION WIDTH 11.4 % (11.0-15.5)
[2023-12-22 09:04] LABS: BILIRUBIN,TOTAL 0.2 mg/dL (0.2-1.0); CREATININE 0.3 mg/dL (0.5-1.3); POTASSIUM 3.4 mmol/L (3.5-5.1); TOTAL PROTEIN, SERUM 5.3 g/dL (6.0-8.3)
--- NOTE | 2023-12-22 10:01 | CONS ---
CONSULT NOTE: Consulting physician: Dr Barron Consulting service: General surgery Reason for consultation: Small bowel obstruction History of present illness: This is a 68-year-old male who initially presented to the hospital several days prior with complaints of generalized body weakness, diarrhea and lethargy. With repeat imaging being performed yesterday concerns for a gastric distention with a small bowel dilatation and colonic distention noted Surgical group consulted for possible obstruction. Patient with a history of colostomy back in 2019 but family unable to give reasons why. On physical exam patient with no distention noted in gas and stool noted in ostomy bag at this time. Family reporting no issues of nausea and vomiting. If the patient's nonverbal status proper HPI a difficult to obtain. White count and hemoglobin unremarkable. Potassium 3.4. Ostomy is noted with gas and stool output. Vital Signs Date Time Temp Pulse Resp B/P (MAP) Pulse Ox O2 Delivery O2 Flow Rate FiO2 12/22/23 03:24 98.8 65 16 120/60 96 Room Air 12/21/23 20:00 0 21 Medical history: Intellectual developmental disability, anemia, Asthma, hyperlipidemia, hypertension, hypothyroidism and seizure disorder PAST SURGICAL HISTORY: Colostomy PAST SOCIAL HISTORY: Patient is a resident of [facility] negative alcohol, cigarette and recreational drug use FAMILY HISTORY: Noncontributory Coded Allergies: fluconazole (Unverified Allergy, Unknown, 12/17/23) metronidazole (Unverified Allergy, Unknown, 12/17/23) omeprazole (Unverified Allergy, Unknown, 12/17/23) Review of systems: General: No Fever, No Chills, No Night Sweats, No Fatigue, No Malaise, No Appetite, No Other HEENT: No Head Aches, No Visual Changes, No Eye Pain, No Ear Pain, No Dysphasia, No Sinus Congestion, No Post Nasal Drip, No Sore Throat, No Other Pulmonary: No Dyspnea, No Cough, No Pleuritic Chest Pain, No Other Cardiovascular: No: Chest Pain, Palpitations, Orthopnea, Paroxysmal No Dyspnea, Edema, Lt Headedness, Other Gastrointestinal: No: Nausea, Vomiting, Diarrhea, Constipation, Melena, Hematochezia, Other Genitourinary: No Dysuria, No Frequency, No Incontinence, No Hematuria, No Retention, No Other Musculoskeletal: No: other, neck pain, shoulder pain, arm pain, back pain, hand pain, leg pain, foot pain Skin: No Urticaria, No Rash, No Other Neurological: No: Weakness, Numbness, Incoordination, Change in speech, Confusion, Seizures, Other Laboratory Tests Test 12/22/23 08:30 White Blood Count 5.0 K/uL (4.8-10.8) Red Blood Count 3.17 MIL/uL (4.50-6.20) L Hemoglobin 10.7 g/dL (14.0-18.0) L Hematocrit 30.6 % (42-54) L Mean Corpuscular Volume 96.5 fL (79-99) Mean Corpuscular Hemoglobin 33.8 pg (27.0-33.0) H Mean Corpuscular Hemoglobin Concent 35.0 g/dL (32.0-36.0) Red Cell Distribution Width 11.4 % (11.0-15.5) Platelet Count 175 K/uL (130-400) Mean Platelet Volume 8.9 fL (7.5-10.5) Nucleated Red Blood Cells 0.0 % (0.0-0.19) Sodium Level 134 mmol/L (136-145) L Potassium Level 3.4 mmol/L (3.5-5.1) L Chloride Level 103 mmol/L (101-111) Carbon Dioxide Level 25 mmol/L (21-32) Blood Urea Nitrogen 8 mg/dL (7-18) Creatinine 0.3 mg/dL (0.5-1.3) L Glomerular Filtration Rate Calc 130 mL/min (>90) Random Glucose 83 mg/dL (70-105) Total Calcium 6.5 mg/dL (8.5-10.1) L Total Bilirubin 0.2 mg/dL (0.2-1.0) Aspartate Amino Transf (AST/SGOT) 42 U/L (10-37) H Alanine Aminotransferase (ALT/SGPT) 52 U/L (12-78) Alkaline Phosphatase 122 U/L (50-136) Total Protein 5.3 g/dL (6.0-8.3) L Albumin 2.0 g/dL (3.5-5.0) L Physical exam: General: Awake alert and oriented Heart: Regular rate and rhythm} Lungs: Clear to auscultation no distress Abdomen: [Soft, nontender, nondistended ostomy status Assessment: This is a 68-year-old male with multiple comorbidities with concerns of possible small bowel obstruction Plan: No surgical intervention planned at this time Patient to remain NPO Nursing to monitor output from ostomy If patient becomes nauseous NG tube to be placed Repeat KUB today Conservative management for now Dr. Weeks to be updated in patient's status and surgical team to follow patient closely. Thank you ALLEN ARGUETA Jr. Dec 22, 2023 10:01
--- NOTE | 2023-12-22 11:39 | HMCIMG ---
ABD 1VW HISTORY: Colonic distention COMPARISON: None FINDINGS: A frontal projection of the abdomen was obtained. Small bowel dilatation is seen. Fecal material is seen in the colon. Degenerative changes of the thoracolumbar spine are noted. IMPRESSION: 1. Small bowel dilatation.
[2023-12-22 12:00] VITALS: BP 117/68; PULSE 60; RESP 18; TEMP 98.6
[2023-12-22] MEDS: PoTASSium chloRIDE 20MEQ ER 20 MEQ ERTAB PO ONE (12:50)
[2023-12-22 16:00] VITALS: BP 115/59; PULSE 60; RESP 18; TEMP 99.1
[2023-12-22 19:40] VITALS: BP 106/59; PULSE 56; RESP 18; TEMP 98.1
[2023-12-22 20:30] VITALS: O2SAT 96
[2023-12-23] VITALS (8 sets, daily range): BP systolic 90–141; BP diastolic 51–72; PULSE 45–56; RESP 18–20; TEMP 97.7–98.3; O2SAT 96
[2023-12-23 08:58] LABS: HEMATOCRIT 31.9 % (42-54); MEAN CORPUSCULAR HEMOGLOBIN 33.7 pg (27.0-33.0); MEAN CORPUSCULAR HGB CONC 34.8 g/dL (32.0-36.0); RED BLOOD CELL COUNT(AUTO) 3.29 MIL/uL (4.50-6.20); RED CELL DISTRIBUTION WIDTH 11.4 % (11.0-15.5); WHITE BLOOD COUNT (AUTO) 3.9 K/uL (4.8-10.8)
[2023-12-23 09:09] LABS: CREATININE 0.3 mg/dL (0.5-1.3); POTASSIUM 3.6 mmol/L (3.5-5.1)
[2023-12-23 09:13] LABS: ALBUMIN 2.1 g/dL (3.5-5.0); BILIRUBIN,TOTAL 0.2 mg/dL (0.2-1.0); MAGNESIUM 1.6 mg/dL (1.80-2.40); TOTAL PROTEIN, SERUM 5.2 g/dL (6.0-8.3)
[2023-12-23] MEDS ORDERED: guaiFENesin-DM 200/20MG 10ML PO PRN (09:30)
--- NOTE | 2023-12-23 10:34 | PN ---
[facility] PROGRESS NOTE Date of Service: Dec 23, 2023 Time of Service: 10:33 Date of service 12/23/2023 SUBJECTIVE: 68-year-old male resident of [facility] with past medical history of intellectual developmental disability, cerebral palsy , mental retardation ,anemia, asthma, hyperlipidemia, hypertension, hypothyroidism and seizure disorder who was brought by EMS to the ED for complaints of generalized body weakness, diarrhea and lethargy.Reportedly patient has been having episodes of watery stools and has been becoming weak and lethargic.Information and details are gathered from ER MD and primary nurse and [facility] as patient is unable to give information due to cognitive impairment. 12/17-patient was seen at the bedside with the sister present. Could not speak to the patient as he was asleep. Vitals stable. Labs WBC 8.6, HB 11.5, [id number] improved from 119, potassium 3.4, chloride 92, BUN 29, creatinine 0.4, GFR 120. UTI positive, procalcitonin 1.13. Urine culture pending. Currently patient is on ceftriaxone1 g every24 hours, 0.9% Na Cl 100 mL/hour. Chest x-ray negative. We will repeat the sodium level, if it is about 130, plan is to send the patient on sodium1 g t.i.d. tablets and Levaquin 250 mg b.i.d. for7 days. 12/18 No new problems reported. Patient remains on Tegretol, and Dilantin for seizure management. Patient continues on IVF, NS at 100 mL/hour. Morning labs sodium 129. 12/19 patient was seen by nurse practitioner and physician during rounding comfortably lying in the bed. Sister at the bedside. Per grace fiore Neurology EEG was performed and that is pending reading. We will reconsult grace fiore to read the EEG and we will further recommendations for seizure medications outpatient. Today sodium is 129 and magnesium is 1.5 we will be replaced with 2 g of magnesium. Anticipated discharge within 24 hours once electrolytes will be replaced and we have final recommendation by macarena chowdhury and results of EEG. A.m. labs 12/21 the patient has been seen and examined during my rounding, no acute events over tonight, no chest pain, shortness shortness for breath, no nausea, no vomiting. Discharge was placed on hold as the patient noted with a one episode of vomiting, CT abdomen showing dilatation of small bowel, surgical consultation requested. Lactulose given. 12/22 the patient has been seen and examined earlier this morning, no acute events overnight, hemodynamically stable, family at bedside, patient with some output noted through the colostomy bag, abdomen soft, nondistended. Possible discharge home today pending General surgery recommendations. We will replace electrolytes per protocol. REVIEW OF SYSTEMS unable to perform patient is nonverbal and lethargic and does not follow commands PHYSICAL EXAM GENERAL APPEARANCE: The patient is asleep but arousable in no acute c ardiopulmonary distress. NEUROLOGICAL: Arousable but nonverbal HEENT: Face is symmetric. Pupils are equal and reactive. Extraocular movements are intact. NECK: Supple. No JVD. CHEST: Normal chest expansion. No Telemetry. LUNGS: Absence of any rales, rhonchi or any wheezing. CARDIOVASCULAR: Regular. S1 and S2 normal. No appreciable rubs, murmurs or gallops. ABDOMEN: Positive colostomy Soft, nontender, and nondistended. There is no rebound, voluntary guarding, or rigidity. : Deferred. No Emmanuel. EXTREMITIES: Non-edematous and not cyanotic. No clubbing. Good capillary refill. contracted extremities SKIN: No skin breakdown. Vital Signs (last 8hr) Date Time Temp Pulse Resp B/P (MAP) Pulse Ox O2 Delivery O2 Flow Rate FiO2 12/23/23 08:30 97.9 45 18 141/72 98 Room Air 12/23/23 03:40 98.1 47 20 126/62 97 Room Air LABS: Laboratory: Test 12/23/23 08:27 Range/Units White Blood Count 3.9 L 4.8-10.8 K/uL Red Blood Count 3.29 L 4.50-6.20 MIL/uL Hemoglobin 11.1 L 14.0-18.0 g/dL Hematocrit 31.9 L 42-54 % Mean Corpuscular Volume 97.0 79-99 fL Mean Corpuscular Hemoglobin 33.7 H 27.0-33.0 pg Mean Corpuscular Hemoglobin Concent 34.8 32.0-36.0 g/dL Red Cell Distribution Width 11.4 11.0-15.5 % Platelet Count 223 # 130-400 K/uL Mean Platelet Volume 9.0 7.5-10.5 fL Nucleated Red Blood Cells 0.0 0.0-0.19 % Sodium Level 130 L 136-145 mmol/L Potassium Level 3.6 3.5-5.1 mmol/L Chloride Level 99 L 101-111 mmol/L Carbon Dioxide Level 28 21-32 mmol/L Blood Urea Nitrogen 6 L 7-18 mg/dL Creatinine 0.3 L 0.5-1.3 mg/dL Glomerular Filtration Rate Calc 130 >90 mL/min Random Glucose 69 L 70-105 mg/dL Total Calcium 6.5 L 8.5-10.1 mg/dL Magnesium Level 1.60 L 1.80-2.40 mg/dL Total Bilirubin 0.2 0.2-1.0 mg/dL Aspartate Amino Transf (AST/SGOT) 37 10-37 U/L Alanine Aminotransferase (ALT/SGPT) 49 12-78 U/L Alkaline Phosphatase 116 50-136 U/L Total Protein 5.2 L 6.0-8.3 g/dL Albumin 2.1 L 3.5-5.0 g/dL Current Medications Medications (Trade) Dose Ordered Sig/Gallo Route PRN Reason Start Time Stop Time Status Last Admin Dose Admin Acetaminophen (TYLenol 325MG TAB) 650 mg Q4H PRN PO MILD PAIN (1-3) 12/18/23 02:00 01/17/24 01:59 Acetaminophen (TYLenol 325MG TAB) 650 mg Q6H PRN PO TEMPERATURE GREATER THAN 101.5 12/18/23 02:00 01/17/24 01:59 Amlodipine Besylate (NorvASC 5MG TAB) 10 mg DAILY PO 12/19/23 09:00 01/18/24 08:59 12/23/23 09:53 10 MG Aspirin (Aspirin 81mg Ec Tab) 81 mg DAILY PO 12/19/23 09:00 01/18/24 08:59 12/23/23 09:53 81 MG Carbamazepine (TEGRetol ER 200MG TAB) 800 mg BID PO 12/18/23 16:30 12/20/23 16:00 DC 12/18/23 20:45 800 MG Ceftriaxone Sodium (ROCEphine 1G INJ) 1 gm Q24H IVPB 12/18/23 02:00 12/28/23 01:59 12/23/23 02:19 1 GM Famotidine (Pepcid 20mg Vial) 20 mg BID IV 12/18/23 09:00 01/17/24 08:59 12/23/23 09:53 20 MG Guaifenesin/ Dextromethorphan (RobiTUSSin DM 200/20MG 10ML) 10 ml Q4H PRN PO COUGH 12/23/23 09:30 01/22/24 09:29 Home Med (Home Medication) (Phenytoin Sodium Exten... TID PO 12/18/23 14:00 12/18/23 16:24 DC Levetiracetam (kepPRA 500 MG TABLET) 1,000 mg BID PO 12/20/23 16:00 01/19/24 15:59 12/23/23 09:53 1,000 MG Magnesium Sulfate 50 ml @ 0 mls/hr PROTOCOL IV 12/20/23 13:30 01/19/24 13:29 12/20/23 14:16 25 MLS/HR Metronidazole/ Sodium Chloride 100 ml @ 100 mls/hr Q8H IV 12/18/23 02:00 12/18/23 02:38 DC Ondansetron HCl (zoFRAN 4MG INJ) 4 mg Q6H PRN IV NAUSEA/VOMITING 12/18/23 02:00 01/17/24 01:59 Phenytoin Sodium (Dilantin 100mg Er Cap) 200 mg TID PO 12/18/23 16:30 01/17/24 16:29 12/23/23 09:53 200 MG Potassium Chloride 100 ml @ 100 mls/hr AD PRN IV POTASSIUM PROTOCOL 12/19/23 10:30 01/18/24 10:29 Potassium Chloride (K-Dur/Klor-Con 20meq) 20 meq AD PRN PO POTASSIUM PROTOCOL 12/19/23 10:30 01/18/24 10:29 12/19/23 14:13 20 MEQ Potassium Chloride (KCl 10% Elixir 20meq/15ml) 20 meq AD PRN PO POTASSIUM PROTOCOL 12/19/23 10:30 01/18/24 10:29 Simethicone (Mylicon) 40 mg QID PRN PO GI GAS 12/21/23 17:00 01/20/24 16:59 Cancel Simethicone (Mylicon) 40 mg QID PRN PO GI GAS 12/21/23 17:30 01/20/24 17:29 12/21/23 17:46 40 MG Sodium Chloride 1,000 ml @ 100 mls/hr Q10H IV 12/18/23 02:00 01/17/24 01:59 12/23/23 00:33 100 MLS/HR DIAGNOSTICS / RADIOLOGY: [ ] ASSESSMENT: Electrolyte imbalance, Severe hyponatremia Na 118 most likely due to dehydration POA Electrolyte imbalance hypokalemia K 3.6, hypomagnesemia mg 1.5 Acute dehydration POA Suspected gastroenteritis POA Uncontrolled diabetes mellitus type 2 with hypoglycemia POA Functional quadriplegia POA Protein calorie malnutrition POA Colostomy status Uncontrolled hypertension Intellectual developmental disability POA Acute Multifactorial Anemia POA Asthma not acute POA Hyperlipidemia POA JOE KRISHNA MD Dec 23, 2023 10:34
[2023-12-23] MEDS ORDERED: MAGNESIUM 2GM PREMIX 50ML 50 ML IV SCH (11:00)
[2023-12-23] MEDS ORDERED: PoTASSium chloRIDE 20MEQ/100ML 100 ML IV PRN (11:00)
--- NOTE | 2023-12-23 11:11 | PN ---
This is a 68-year-old male with concerns of small bowel obstruction which appears to be resolving Interval history: This 68-year-old male seen in his room with family at bedside Ostomy stooling with gas production noted KUB yesterday concerning for small bowel dilatation No distention noted today. Labs unremarkable Patient reporting hunger Physical exam General: Awake alert and oriented Heart: Regular rate and rhythm} Lungs: Clear to auscultation no distress Abdomen: [Soft, nontender, nondistended ostomy productive Assessment : This is a 68-year-old male with ostomy status with concerns of small bowel obstruction which appears to be resolving Plan: Patient to continue with current medical management We will start patient on clear liquid diet and monitor patient closely If tolerated patient to be advanced No surgical intervention planned Dr. Weeks be updated in patient's status and nursing report any further acute events Vitals/Labs Vital Signs Date Time Temp Pulse Resp B/P (MAP) Pulse Ox O2 Delivery O2 Flow Rate FiO2 12/23/23 08:30 97.9 45 18 141/72 98 Room Air 12/22/23 20:30 0 21 Laboratory Tests 12/23/23 08:27 Medications Current Medications Lactated Ringer's 1,000 ml @ 0 mls/hr ONCE ONCE IV Last administered on 12/17/23at 21:22; Start 12/17/23 at 20:00; Stop 12/17/23 at 20:01; Status DC Sodium Chloride 1,000 ml @ 0 mls/hr ONCE ONCE IV Last administered on 12/18/23at 01:12; Start 12/18/23 at 00:00; Stop 12/18/23 at 00:01; Status DC Acetaminophen 650 mg Q6H PRN PO; Start 12/18/23 at 02:00; Stop 01/17/24 at 01:59 Acetaminophen 650 mg Q4H PRN PO; Start 12/18/23 at 02:00; Stop 01/17/24 at 01:59 Ondansetron HCl 4 mg Q6H PRN IV; Start 12/18/23 at 02:00; Stop 01/17/24 at 01:59 Sodium Chloride 1,000 ml @ 100 mls/hr Q10H IV Last administered on 12/23/23at 00:33; Start 12/18/23 at 02:00; Stop 01/17/24 at 01:59 Metronidazole/ Sodium Chloride 100 ml @ 100 mls/hr Q8H IV; Start 12/18/23 at 02:00; Stop 12/18/23 at 02:38; Status DC Famotidine 20 mg BID IV Last administered on 12/23/23at 09:53; Start 12/18/23 at 09:00; Stop 01/17/24 at 08:59 Ceftriaxone Sodium 1 gm Q24H IVPB Last administered on 12/23/23at 02:19; Start 12/18/23 at 02:00; Stop 12/28/23 at 01:59 Carbamazepine 800 mg BID PO Last administered on 12/18/23at 20:45; Start 12/18/23 at 16:30; Stop 12/20/23 at 16:00; Status DC Home Med (Phenytoin Sodium Exten... TID PO; Start 12/18/23 at 14:00; Stop 12/18/23 at 16:24; Status DC Aspirin 81 mg DAILY PO Last administered on 12/23/23at 09:53; Start 12/19/23 at 09:00; Stop 01/18/24 at 08:59 Amlodipine Besylate 10 mg DAILY PO Last administered on 12/23/23at 09:53; Start 12/19/23 at 09:00; Stop 01/18/24 at 08:59 Phenytoin Sodium 200 mg TID PO Last administered on 12/23/23at 09:53; Start 12/18/23 at 16:30; Stop 01/17/24 at 16:29 Potassium Chloride 100 ml @ 100 mls/hr AD PRN IV; Start 12/19/23 at 10:30; Stop 12/23/23 at 10:38; Status DC Potassium Chloride 20 meq AD PRN PO; Start 12/19/23 at 10:30; Stop 01/18/24 at 10:29 Potassium Chloride 20 meq AD PRN PO Last administered on 12/19/23at 14:13; Start 12/19/23 at 10:30; Stop 01/18/24 at 10:29 Potassium Chloride 40 meq ONCE ONCE PO Last administered on 12/20/23at 14:15; Start 12/20/23 at 13:30; Stop 12/20/23 at 13:31; Status DC Magnesium Sulfate 50 ml @ 0 mls/hr PROTOCOL IV Last administered on 12/20/23at 14:16; Start 12/20/23 at 13:30; Stop 12/23/23 at 10:38; Status DC Sodium Chloride 1,000 mg ONCE ONCE PO Last administered on 12/20/23at 14:15; Start 12/20/23 at 13:30; Stop 12/20/23 at 13:31; Status DC Levetiracetam 1,000 mg BID PO Last administered on 12/23/23at 09:53; Start 12/20/23 at 16:00; Stop 01/19/24 at 15:59 Lactulose 20 gm ONCE ONCE PO Last administered on 12/21/23at 17:45; Start 12/21/23 at 17:00; Stop 12/21/23 at 17:01; Status DC Simethicone 40 mg QID PRN PO; Start 12/21/23 at 17:00; Stop 01/20/24 at 16:59; Status Cancel Simethicone 40 mg QID PRN PO Last administered on 12/21/23at 17:46; Start 12/21/23 at 17:30; Stop 01/20/24 at 17:29 Potassium Chloride 40 meq ONCE ONCE PO Last administered on 12/22/23at 12:50; Start 12/22/23 at 10:00; Stop 12/22/23 at 10:10; Status DC Guaifenesin/ Dextromethorphan 10 ml Q4H PRN PO; Start 12/23/23 at 09:30; Stop 01/22/24 at 09:29 Magnesium Sulfate 50 ml @ 0 mls/hr PROTOCOL IV; Start 12/23/23 at 11:00; Stop 01/22/24 at 10:59 Potassium Chloride 100 ml @ 50 mls/hr ONCE ONCE IV; Start 12/23/23 at 11:00; Stop 12/23/23 at 12:59 Potassium Chloride 100 ml @ 100 mls/hr AD PRN IV; Start 12/23/23 at 11:00; Stop 01/22/24 at 10:59 ALLEN ARGUETA Jr. Dec 23, 2023 11:10
[2023-12-23] MEDS: PoTASSium chloRIDE 20MEQ/100ML 100 ML IV ONE (14:48)
[2023-12-23 16:00] LABS: THYROID STIMULATING HORMONE 5.21 uIU/mL (0.36-3.74)
[2023-12-23 16:40] LABS: HEMOGLOBIN A1C 5.4 % (4.0-6.0)
[2023-12-24 04:03] VITALS: BP 107/60; PULSE 49; RESP 17; TEMP 98.2
[2023-12-24 04:46] LABS: HEMATOCRIT 29.3 % (42-54); MEAN CORPUSCULAR HGB CONC 35.2 g/dL (32.0-36.0); MEAN CORPUSCULAR VOLUME 96.7 fL (79-99); RED BLOOD CELL COUNT(AUTO) 3.03 MIL/uL (4.50-6.20); RED CELL DISTRIBUTION WIDTH 11.5 % (11.0-15.5); WHITE BLOOD COUNT (AUTO) 3.7 K/uL (4.8-10.8)
[2023-12-24 08:00] VITALS: BP 143/62; PULSE 50; RESP 18; TEMP 97.9; O2SAT 98
[2023-12-24 08:16] LABS: CREATININE 0.4 mg/dL (0.5-1.3); POTASSIUM 3.5 mmol/L (3.5-5.1)
[2023-12-24 08:20] LABS: BILIRUBIN,TOTAL 0.1 mg/dL (0.2-1.0)
--- NOTE | 2023-12-24 10:32 | HMCIMG ---
NM GASTRIC EMPTYING STUDY REASON: rule out gastroparesis. COMPARISON: None TECHNIQUE: Nuclear gastric emptying study was performed with 1.5 mCi of technetium sulfa colloid with scrambled eggs through oral route. FINDINGS: T half of gastric emptying is 45 minutes which is within normal limits. IMPRESSION: Normal gastric emptying with T half of 45 minutes.
--- NOTE | 2023-12-24 11:29 | CONS ---
REFERRING PHYSICIAN: Dr. Barron. REASON FOR CONSULTATION: Renal failure, electrolyte abnormality. HISTORY OF PRESENT ILLNESS: A 68-year-old male who has a history of intellectual disability, cerebral palsy, history is mainly obtained via the chart. The patient initially presented with failure to thrive. The patient has been having poor oral intake as well as significant nausea and vomiting. In the hospital, the patient was found to have underlying renal dysfunction as well as electrolyte abnormalities, and the patient is being seen in consultation for all of the above. The patient apparently has been started back on a diet. PAST MEDICAL HISTORY: Intellectual disability, hypertension, and seizure disorders. PAST SURGICAL HISTORY: Colostomy. SOCIAL HISTORY: He lives at [facility]. FAMILY HISTORY: There is no renal disease in the family. ALLERGIES: HE HAS MULTIPLE ALLERGIES WHICH ARE NOTED. MEDICATIONS: Noted. REVIEW OF SYSTEMS: He is really unable to give any formal review of systems. PHYSICAL EXAMINATION: VITAL SIGNS: Blood pressure is 143/62, pulse in the 50s. GENERAL: Chronically ill male, lying in bed on medical floor. HEENT: Head is atraumatic. Pupils equal, roving to light. Oropharynx is without exudate. Nares clear. NECK: There is no JVP. There is no thyromegaly, no mass. CARDIOVASCULAR: Regular. There is no S3, S4 gallop. LUNGS: Coarse with equal thoracic movement. ABDOMEN: Soft, nondistended, nontender. EXTREMITIES: No clubbing, no cyanosis. NEUROLOGICAL: He is awake. He is at his baseline according to the staff. He is nonfocal. LABORATORY DATA: Hemoglobin 10, hematocrit 29, white count 4000. Sodium 134, potassium 3.5, BUN 5, creatinine 0.4. IMPRESSION: * Acute on chronic renal failure. * Electrolyte abnormalities. * History of the intellectual disability. * Debilitation. PLAN: The patient's serum sodium continues to slowly improve. The patient is now tolerating a diet. The patient's IV fluids can safely be discontinued. Once the patient is discharged, the patient can follow up in the Renal Clinic. The patient's serum sodium will slowly improve with his oral intake. I did discuss with the family members. I will also discuss with the primary team. TID: [id number] RECEIPT: [id number]
[2023-12-24 12:08] VITALS: BP 111/58; PULSE 103; RESP 18; TEMP 98.1
--- NOTE | 2023-12-24 15:25 | HMCIMG ---
ABD 1VW HISTORY: Constipation COMPARISON: 12/22/2023 FINDINGS: A frontal projection of the abdomen was obtained. Gastric distention is seen. Small bowel dilatation is seen Fecal material is seen in the colon. Degenerative changes of the thoracolumbar spine are noted. IMPRESSION: 1. Gastric distention and small bowel dilatation is seen.
[2023-12-24 16:00] VITALS: BP 159/73; PULSE 59; RESP 18; TEMP 98.1
[2023-12-24 19:10] VITALS: BP 117/62; PULSE 59; RESP 17; TEMP 97.7
[2023-12-24 20:20] VITALS: O2SAT 100
--- NOTE | 2023-12-24 21:50 | CONS ---
GASTROENTEROLOGY CONSULTATION NOTE Date of Consultation: Dec 24, 2023 Time of Consultation: 21:50 History of Present Illness: This is a 68-year-old male with past medical history of intellectual developmental delay, cerebral palsy, mental retardation, anemia, asthma, hyperlipidemia, hypertension, hypothyroidism and seizure disorder was brought in due to generalized body weakness, diarrhea and lethargic. He was found to be severely hyponatremic. Imaging on admission revealing small bowel dilation and colonic distention. Gastric emptying scan was normal. KUB today with gastric distention and small bowel dilation. Patient has been tolerating diet today. Review of Systems: CONSTITUTIONAL: No malaise or change in sensation of wellbeing. ENMT: No rhinorrhea, otorrhea, sinus pain, ear ache. CARDIOVASCULAR: No angina, palpitations, orthopnea or paroxysmal dyspnea. RESPIRATORY: No SOB. GASTROINTESTINAL: No abdominal pain, nausea, vomiting, diarrhea, hematemesis, melena or change in the patient's habitual bowel movements consistency/number. GENITOURINARY: No dysuria, hematuria or change in bladder continence. MUSCULOSKELETAL: No new muscle pain or decrease in muscular strength. No new joint swelling, redness or tenderness. SKIN: No new rash. Past Medical History: [ ] Past Surgical History: [ ] Past Social History: [ ] Family History: [ ] Coded Allergies: fluconazole (Unverified Allergy, Unknown, 12/17/23) metronidazole (Unverified Allergy, Unknown, 12/17/23) omeprazole (Unverified Allergy, Unknown, 12/17/23) Physical Exam: GEN: Awake, alert, oriented in person, time and place, and in no acute distress. HEENT: No sinus tenderness. Tympanic membranes were not examined. No rhinorrhea. Oral pharyngeal mucosa is pink, moist and within normal limits. Neck is supple with no cervical lymphadenopathy, thyromegaly or JVD. CHEST: Inspection, palpation and percussion of the chest were unremarkable. Lung auscultation revealed normal breath sounds bilaterally. CARDIAC: PMI is within normal limits. Heart sounds are regular. Normal S1, S2. No gallop or murmur. ABD: Soft, non-tender and not distended. No peritoneal signs on palpation. No organomegaly. Normal bowel sounds. EXT: No cyanosis or clubbing. No edema. SKIN: Intact. No rashes. JOINTS: No evidence of synovitis or acute arthritis. NEURO: Alert and oriented to name, place and person. Cranial nerve examination is unremarkable. No focal motor deficits. Normal speech. Gait is normal. Strength is normal. Vital Sign (Last 24 Hours) 12/24/23 12/24/23 12/24/23 08:00 16:00 19:10 Temp 97.7 Pulse 59 Resp 17 B/P (MAP) 117/62 Pulse Ox 96 O2 Delivery Room Air O2 Flow Rate 0 FiO2 21 Intake & Output (last 24hrs) 12/23/23 12/23/23 12/24/23 15:00 23:00 07:00 Intake Total 240 ml 1440.0 ml 50.0 ml Balance 240 ml 1440.0 ml 50.0 ml Laboratory: [ ] Laboratory: Test 12/24/23 04:39 12/23/23 08:27 Range/Units White Blood Count 3.7 L 4.8-10.8 K/uL Red Blood Count 3.03 L 4.50-6.20 MIL/uL Hemoglobin 10.3 L 14.0-18.0 g/dL Hematocrit 29.3 L 42-54 % Mean Corpuscular Volume 96.7 79-99 fL Mean Corpuscular Hemoglobin 34.0 H 27.0-33.0 pg Mean Corpuscular Hemoglobin Concent 35.2 32.0-36.0 g/dL Red Cell Distribution Width 11.5 11.0-15.5 % Platelet Count 230 130-400 K/uL Mean Platelet Volume 8.7 7.5-10.5 fL Nucleated Red Blood Cells 0.0 0.0-0.19 % Sodium Level 134 L 136-145 mmol/L Potassium Level 3.5 3.5-5.1 mmol/L Chloride Level 100 L 101-111 mmol/L Carbon Dioxide Level 30 21-32 mmol/L Blood Urea Nitrogen 5 L 7-18 mg/dL Creatinine 0.4 L 0.5-1.3 mg/dL Glomerular Filtration Rate Calc 120 >90 mL/min Random Glucose 89 70-105 mg/dL Total Calcium 6.3 L 8.5-10.1 mg/dL Magnesium Level 1.60 1.6-2.6 mg/dL Total Bilirubin 0.1 #L 0.2-1.0 mg/dL Aspartate Amino Transf (AST/SGOT) 41 H 10-37 U/L Alanine Aminotransferase (ALT/SGPT) 51 12-78 U/L Alkaline Phosphatase 109 50-136 U/L Total Protein 5.0 L 6.0-8.3 g/dL Albumin 2.0 L 3.5-5.0 g/dL Hemoglobin A1c 5.4 4.0-6.0 % Estimated Average Glucose (eAG) 108 70-126 mg/dL Serum Osmolality 272 L 278-305 mOsm/kg Thyroid Stimulating Hormone (TSH) 5.21 H 0.36-3.74 uIU/mL Free Thyroxine (T4) Direct 0.56 L 0.76-1.46 ng/dL Free Triiodothyronine (T3) pg/mL 0.58 L 2.18-3.98 pg/mL Current Medications Medications (Trade) Dose Ordered Sig/Gallo Route PRN Reason Start Time Stop Time Status Last Admin Dose Admin Acetaminophen (TYLenol 325MG TAB) 650 mg Q4H PRN PO MILD PAIN (1-3) 12/18/23 02:00 01/17/24 01:59 Acetaminophen (TYLenol 325MG TAB) 650 mg Q6H PRN PO TEMPERATURE GREATER THAN 101.5 12/18/23 02:00 01/17/24 01:59 Amlodipine Besylate (NorvASC 5MG TAB) 10 mg DAILY PO 12/19/23 09:00 01/18/24 08:59 12/24/23 09:22 10 MG Aspirin (Aspirin 81mg Ec Tab) 81 mg DAILY PO 12/19/23 09:00 01/18/24 08:59 12/24/23 09:21 81 MG Carbamazepine (TEGRetol ER 200MG TAB) 800 mg BID PO 12/18/23 16:30 12/20/23 16:00 DC 12/18/23 20:45 800 MG Ceftriaxone Sodium (ROCEphine 1G INJ) 1 gm Q24H IVPB 12/18/23 02:00 12/28/23 01:59 12/24/23 01:48 1 GM Famotidine (Pepcid 20mg Vial) 20 mg BID IV 12/18/23 09:00 01/17/24 08:59 12/24/23 21:43 20 MG Guaifenesin/ Dextromethorphan (RobiTUSSin DM 200/20MG 10ML) 10 ml Q4H PRN PO COUGH 12/23/23 09:30 01/22/24 09:29 Home Med (Home Medication) (Phenytoin Sodium Exten... TID PO 12/18/23 14:00 12/18/23 16:24 DC Levetiracetam (kepPRA 500 MG TABLET) 1,000 mg BID PO 12/20/23 16:00 01/19/24 15:59 12/24/23 21:43 1,000 MG Magnesium Sulfate 50 ml @ 0 mls/hr PROTOCOL IV 12/20/23 13:30 12/23/23 10:38 DC 12/20/23 14:16 25 MLS/HR Magnesium Sulfate 50 ml @ 0 mls/hr PROTOCOL IV 12/23/23 11:00 01/22/24 10:59 Metronidazole/ Sodium Chloride 100 ml @ 100 mls/hr Q8H IV 12/18/23 02:00 12/18/23 02:38 DC Ondansetron HCl (zoFRAN 4MG INJ) 4 mg Q6H PRN IV NAUSEA/VOMITING 12/18/23 02:00 01/17/24 01:59 Phenytoin Sodium (Dilantin 100mg Er Cap) 200 mg TID PO 12/18/23 16:30 01/17/24 16:29 12/24/23 21:43 200 MG Potassium Chloride 100 ml @ 100 mls/hr AD PRN IV POTASSIUM PROTOCOL 12/19/23 10:30 12/23/23 10:38 DC Potassium Chloride 100 ml @ 100 mls/hr AD PRN IV POTASSIUM PROTOCOL 12/23/23 11:00 01/22/24 10:59 Potassium Chloride (K-Dur/Klor-Con 20meq) 20 meq AD PRN PO POTASSIUM PROTOCOL 12/19/23 10:30 01/18/24 10:29 12/19/23 14:13 20 MEQ Potassium Chloride (KCl 10% Elixir 20meq/15ml) 20 meq AD PRN PO POTASSIUM PROTOCOL 12/19/23 10:30 01/18/24 10:29 Simethicone (Mylicon) 40 mg QID PRN PO GI GAS 12/21/23 17:00 01/20/24 16:59 Cancel Simethicone (Mylicon) 40 mg QID PRN PO GI GAS 12/21/23 17:30 12/4/24 17:29 12/21/23 17:46 40 MG Sodium Chloride 1,000 ml @ 100 mls/hr Q10H IV 12/18/23 02:00 12/24/23 18:15 DC 12/24/23 00:38 100 MLS/HR Diagnostics / Radiology: [COPY/PASTE HERE IF NO REPORTS PLEASE DELETE SECTION] Assessment: Gastric distention SBO, resolved Colon distention Plan: EGD in AM Check mg, phos and potassium daily and correct as needed Continue GI prophylaxis Avoid NSAIDs Antireflux measures Monitor H&H and transfuse as needed Call with questions, concerns or change in clinical status Patient to follow-up at clinic post discharge Thank you for this consult MARGARETH THAPA [employer] Dec 24, 2023 21:50
[2023-12-25] VITALS (26 sets, daily range): BP systolic 89–121; BP diastolic 50–74; PULSE 45–62; RESP 14–20; TEMP 96.6–98.8; O2SAT 96
[2023-12-25] MEDS ORDERED: MIDAZOLAM HCL 1 MG/ML 2ML VIAL ONE (07:52)
[2023-12-25] MEDS ORDERED: proPOFol 10 MG/ML 20ML VIAL IV ONE (07:53)
--- NOTE | 2023-12-25 10:02 | PN ---
FOLLOWUP PROGRESS NOTE SUBJECTIVE: A 68-year-old male with a history of intellectual disability and cerebral palsy. The patient initially presented with failure to thrive, poor oral intake. He has had acute renal failure as well as electrolyte abnormalities including hyponatremia. The patient is being seen by GI service and workup is ongoing and the patient is being seen as a followup visit for all the above. He is scheduled for EGD later today. REVIEW OF SYSTEMS: He is really unable to give review of systems. OBJECTIVE: VITAL SIGNS: Blood pressure 115/65, pulse 50s. GENERAL: He is a chronically ill male, lying in bed in the medical floor. HEENT: Head is atraumatic. Pupils equal, roving to light. Oropharynx is without exudate. Nares clear. NECK: There is no JVP. There is no thyromegaly, no mass. CARDIOVASCULAR: Regular. There is no S3, S4 gallop. LUNGS: Coarse with equal thoracic movement. ABDOMEN: Soft, nondistended, nontender. EXTREMITIES: No clubbing, no cyanosis. NEUROLOGIC: He is unchanged. LABORATORY DATA: Sodium 134, BUN 5, creatinine 0.4. IMPRESSION: * Acute on chronic renal failure. * Electrolyte abnormalities. * History of intellectual disability. * Nausea, vomiting. PLAN: The patient's GI workup is ongoing. He is tolerating some amount of a diet. The patient's serum sodium is much improved. Electrolytes have all been aggressively repleted. We will continue to follow the patient closely. When the patient gets discharged, he can follow up in the Renal Clinic. TID: [id number] RECEIPT: [id number]
[2023-12-26] VITALS (8 sets, daily range): BP systolic 103–132; BP diastolic 55–69; PULSE 45–69; RESP 16–18; TEMP 97.3–98.6; O2SAT 98–100
--- NOTE | 2023-12-26 09:26 | HMCIMG ---
ABD 1VW HISTORY: Fecal impaction COMPARISON: None FINDINGS: A frontal projection of the abdomen was obtained. Mild small bowel dilatation is seen. Fecal material is seen in the colon. Degenerative changes of the thoracolumbar spine are noted. IMPRESSION: 1. Mild small bowel dilatation.
[2023-12-26] MEDS: PoTASSium chloRIDE 20MEQ/100ML 100 ML IV ONE (09:40)
[2023-12-26] MEDS: MAGNESIUM 2GM PREMIX 50ML 50 ML IV SCH (09:40)
[2023-12-26] MEDS: LACTOBACILLUS RHAMNOSUS GG 1 EACH CAP.SPRINK PO SCH (09:40)
[2023-12-26] MEDS: tamSULOsin HCL 0.4 MG CAP.ER.24H PO SCH (09:41)
[2023-12-26] MEDS: ceTIRIzine HCL 5 MG TABLET PO SCH (09:41)
[2023-12-26] MEDS: SODIUM CHLORIDE 1,000 MG TAB PO SCH (09:41)
[2023-12-26] MEDS: ZONISAMIDE 100 MG PO SCH (09:41)
[2023-12-26] MEDS: carBAMazepine ER 200 MG TAB PO SCH (09:41)
[2023-12-26] MEDS: SIMETHICONE 80 MG TAB.CHEW PO SCH (09:41)
[2023-12-26] MEDS: CYANOCOBALAMIN (VITAMIN B-12) 1,000 MCG TABLET PO SCH (09:41)
[2023-12-26] MEDS: FOLic ACID 1 MG TABLET PO SCH (09:41)
[2023-12-26] MEDS: LACTULOSE 20 GM/30 ML UDCUP PO SCH (09:44)
[2023-12-26] MEDS ORDERED: MAGNESIUM 2GM PREMIX 50ML 50 ML IV SCH (11:30)
[2023-12-26] MEDS: PoTASSium chloRIDE 20MEQ ER 20 MEQ ERTAB PO ONE (11:31)
--- NOTE | 2023-12-26 12:01 | PN ---
[facility] PROGRESS NOTE Date of Service: Dec 26, 2023 Time of Service: 11:51 Date of service 12/23/2023 SUBJECTIVE: 68-year-old male resident of [facility] with past medical history of intellectual developmental disability, cerebral palsy , mental retardation ,anemia, asthma, hyperlipidemia, hypertension, hypothyroidism and seizure disorder who was brought by EMS to the ED for complaints of generalized body weakness, diarrhea and lethargy.Reportedly patient has been having episodes of watery stools and has been becoming weak and lethargic.Information and details are gathered from ER MD and primary nurse and [facility] as patient is unable to give information due to cognitive impairment. 12/17-patient was seen at the bedside with the sister present. Could not speak to the patient as he was asleep. Vitals stable. Labs WBC 8.6, HB 11.5, improved from 119, potassium 3.4, chloride 92, BUN 29, creatinine 0.4, GFR 120. UTI positive, procalcitonin 1.13. Urine culture pending. Currently patient is on ceftriaxone1 g every24 hours, 0.9% Na Cl 100 mL/hour. Chest x-ray negative. We will repeat the sodium level, if it is about 130, plan is to send the patient on sodium1 g t.i.d. tablets and Levaquin 250 mg b.i.d. for7 days. 12/18 No new problems reported. Patient remains on Tegretol, and Dilantin for seizure management. Patient continues on IVF, NS at 100 mL/hour. Morning labs sodium 129. 12/19 patient was seen by nurse practitioner and physician during rounding comfortably lying in the bed. Sister at the bedside. Per [facility] EEG was performed and that is pending reading. We will reconsult grace fiore to read the EEG and we will further recommendations for seizure medications outpatient. Today sodium is 129 and magnesium is 1.5 we will be replaced with 2 g of magnesium. Anticipated discharge within 24 hours once electrolytes will be replaced and we have final recommendation by macarena chowdhury and results of EEG. A.m. labs 12/21 the patient has been seen and examined during my rounding, no acute events over tonight, no chest pain, shortness shortness for breath, no nausea, no vomiting. Discharge was placed on hold as the patient noted with a one episode of vomiting, CT abdomen showing dilatation of small bowel, surgical consultation requested. Lactulose given. 12/22 the patient has been seen and examined earlier this morning, no acute events overnight, hemodynamically stable, family at bedside, patient with some output noted through the colostomy bag, abdomen soft, nondistended. Possible discharge home today pending General surgery recommendations. We will replace electrolytes per protocol. 12/25 the patient has been seen and examined during my rounding earlier this morning, no acute events overnight. During my visit he remains comfortably in bed, BP 111/57, heart rate fluctuating between 45-51. No chest pain, no shortness a breath, no nausea, no vomiting. Patient is currently on GI soft/bland diet, tolerating well, passing gas, output noted in the colostomy bag. Family members at bedside during my visit, updated, all questions answered. REVIEW OF SYSTEMS unable to perform patient is nonverbal and lethargic and does not follow commands PHYSICAL EXAM GENERAL APPEARANCE: The patient is asleep but arousable in no acute cardiopulmonary distress. NEUROLOGICAL: Arousable but nonverbal HEENT: Face is symmetric. Pupils are equal and reactive. Extraocular movements are intact. NECK: Supple. No JVD. CHEST: Normal chest expansion. No Telemetry. LUNGS: Absence of any rales, rhonchi or any wheezing. CARDIOVASCULAR: Regular. S1 and S2 normal. No appreciable rubs, murmurs or gallops. ABDOMEN: Positive colostomy Soft, nontender, and nondistended. There is no rebound, voluntary guarding, or rigidity. : Deferred. No Emmanuel. EXTREMITIES: Non-edematous and not cyanotic. No clubbing. Good capillary refill. contracted extremities SKIN: No skin breakdown. Vital Signs (last 8hr) Date Time Temp Pulse Resp B/P (MAP) Pulse Ox O2 Delivery O2 Flow Rate FiO2 12/26/23 08:20 100 Room Air* 0 21 12/26/23 08:00 97.9 45 16 111/57 100 Room Air 21 12/26/23 04:00 98.6 52 18 115/55 95 Room Air LABS: Current Medications Medications (Trade) Dose Ordered Sig/Gallo Route PRN Reason Start Time Stop Time Status Last Admin Dose Admin Acetaminophen (TYLenol 325MG TAB) 650 mg Q4H PRN PO MILD PAIN (1-3) 12/18/23 02:00 01/17/24 01:59 Acetaminophen (TYLenol 325MG TAB) 650 mg Q6H PRN PO TEMPERATURE GREATER THAN 101.5 12/18/23 02:00 01/17/24 01:59 Amlodipine Besylate (NorvASC 5MG TAB) 10 mg DAILY PO 12/19/23 09:00 01/18/24 08:59 12/26/23 09:41 10 MG Aspirin (Aspirin 81mg Ec Tab) 81 mg DAILY PO 12/19/23 09:00 01/18/24 08:59 12/26/23 09:41 81 MG Atorvastatin Calcium (LIPItor 10MG) 10 mg HS PO 12/26/23 21:00 01/25/24 20:59 Carbamazepine (TEGRetol ER 200MG TAB) 800 mg BID PO 12/18/23 16:30 12/20/23 16:00 DC 12/18/23 20:45 800 MG Carbamazepine (TEGRetol ER 200MG TAB) 800 mg BID PO 12/26/23 09:00 01/25/24 08:59 12/26/23 09:41 800 MG Ceftriaxone Sodium (ROCEphine 1G INJ) 1 gm Q24H IVPB 12/18/23 02:00 12/28/23 01:59 12/26/23 02:11 1 GM Cetirizine HCl (ZYRtec 5 MG TABLET) 10 mg DAILY PO 12/26/23 09:00 01/25/24 08:59 12/26/23 09:41 10 MG Famotidine (Pepcid 20mg Vial) 20 mg BID IV 12/18/23 09:00 12/26/23 11:15 DC 12/26/23 09:40 20 MG Folic Acid (FOLic ACID 1 MG TABLET) 1 mg DAILY PO 12/26/23 09:00 01/25/24 08:59 12/26/23 09:41 1 MG Guaifenesin/ Dextromethorphan (RobiTUSSin DM 200/20MG 10ML) 10 ml Q4H PRN PO COUGH 12/23/23 09:30 01/22/24 09:29 Home Med (Home Medication) (Phenytoin Sodium Exten... TID PO 12/18/23 14:00 12/18/23 16:24 DC Home Med (Home Medication) Calcium Citrate/ Vitamin... DAILYDINNER PO 12/26/23 17:00 01/25/24 16:59 Lactobacillus Rhamnosus ([facility]) 1 each DAILY PO 12/26/23 09:00 01/25/24 08:59 12/26/23 09:40 1 EACH Lactulose (Constulose 20gm/ 30ml Udcup) 20 gm BID PO 12/26/23 09:30 01/25/24 09:29 12/26/23 09:44 20 GM Levetiracetam (kepPRA 500 MG TABLET) 1,000 mg BID PO 12/20/23 16:00 01/19/24 15:59 12/26/23 09:41 1,000 MG Levothyroxine Sodium (SYNTHroid 112MCG TAB) 112 mcg SYN PO 12/27/23 06:30 01/26/24 06:29 Magnesium Sulfate 50 ml @ 0 mls/hr PROTOCOL IV 12/20/23 13:30 12/23/23 10:38 DC 12/20/23 14:16 25 MLS/HR Magnesium Sulfate 50 ml @ 0 mls/hr PROTOCOL IV 12/23/23 11:00 12/26/23 08:36 DC Magnesium Sulfate 50 ml @ 0 mls/hr PROTOCOL IV 12/26/23 09:00 12/26/23 11:22 DC 12/26/23 09:40 25 MLS/HR Magnesium Sulfate 50 ml @ 0 mls/hr PROTOCOL IV 12/26/23 11:30 01/25/24 11:29 Metronidazole/ Sodium Chloride 100 ml @ 100 mls/hr Q8H IV 12/18/23 02:00 12/18/23 02:38 DC Multivitamins Therapeutic (Multivitamin Tablet) 1 tab DAILY PO 12/27/23 09:00 01/26/24 08:59 Ondansetron HCl (zoFRAN 4MG INJ) 4 mg Q6H PRN IV NAUSEA/VOMITING 12/18/23 02:00 01/17/24 01:59 Pantoprazole Sodium (PROTonix 40MG TAB) 40 mg DAILY PO 12/27/23 09:00 01/26/24 08:59 UNV Phenytoin Sodium (Dilantin 100mg Er Cap) 200 mg TID PO 12/18/23 16:30 01/17/24 16:29 12/26/23 09:40 200 MG Potassium Chloride 100 ml @ 100 mls/hr AD PRN IV POTASSIUM PROTOCOL 12/19/23 10:30 12/23/23 10:38 DC Potassium Chloride 100 ml @ 100 mls/hr AD PRN IV POTASSIUM PROTOCOL 12/23/23 11:00 01/22/24 10:59 Potassium Chloride (K-Dur/Klor-Con 20meq) 20 meq AD PRN PO POTASSIUM PROTOCOL 12/19/23 10:30 01/18/24 10:29 12/19/23 14:13 20 MEQ Potassium Chloride (KCl 10% Elixir 20meq/15ml) 20 meq AD PRN PO POTASSIUM PROTOCOL 12/19/23 10:30 01/18/24 10:29 Simethicone (Mylicon) 40 mg QID PRN PO GI GAS 12/21/23 17:00 01/20/24 16:59 Cancel Simethicone (Mylicon) 40 mg QID PRN PO GI GAS 12/21/23 17:30 01/20/24 17:29 12/21/23 17:46 40 MG Simethicone (Mylicon) 80 mg TID PO 12/26/23 09:00 01/25/24 08:59 12/26/23 09:41 80 MG Sodium Chloride 1,000 ml @ 100 mls/hr Q10H IV 12/18/23 02:00 12/24/23 18:15 DC 12/24/23 00:38 100 MLS/HR Sodium Chloride (Sodium Chloride) 1,000 mg BID PO 12/26/23 09:00 01/25/24 08:59 12/26/23 09:41 1,000 MG Tamsulosin HCl (FloMAX) 0.4 mg QODAY PO 12/26/23 09:00 01/25/24 08:59 12/26/23 09:41 0.4 MG Vitamin B Complex (Vitamin B-12) 1,000 mcg DAILY PO 12/26/23 09:00 01/25/24 08:59 12/26/23 09:41 1,000 MCG Zonisamide (ZonegRAN) 300 mg BID PO 12/26/23 09:00 01/25/24 08:59 12/26/23 09:41 300 MG DIAGNOSTICS / RADIOLOGY: [ ] ASSESSMENT: Electrolyte imbalance, Severe hyponatremia Na 118 most likely due to dehydration POA Electrolyte imbalance hypokalemia K 3.6, hypomagnesemia mg 1.5 Acute dehydration POA Suspected gastroenteritis POA Uncontrolled diabetes mellitus type 2 with hypoglycemia POA Functional quadriplegia POA Protein calorie malnutrition POA Colostomy status Uncontrolled hypertension Intellectual developmental disability POA Acute Multifactorial Anemia POA Asthma not acute POA Hyperlipidemia POA Disposition: Discharge has been placed on hold for the last few days, as there has been concern about the persistent bowel dilatation present on the KUB. Consultation with packer operator automatic was requested, and EGD was done 12/25/2023, with findings of diffuse severe inflammation characterized by congestion/edema/erythema, granularity and nodular changes in the entire examined stomach, status post biopsied. Patient has been started on Protonix 40 mg p.o. daily per GI recommendations. Currently the patient is on GI soft/bland diet, tolerating well, passing gas, output noted in the colostomy bag. Patient noted to be bradycardic, however asymptomatic, BP has remained stable. He has a history of hypothyroidism, he is currently on Synthroid. Review of home medications he takes metoprolol tartrate 25 mg p.o. b.i.d., this has been placed on hold. A 12 lead EKG ordered today shows sinus bradycardia with a low-voltage QRS. Echocardiogram ordered to rule out possible pericardial effusion. Cardiology consultation requested as well, we will follow input and recommendation. Family members are at bedside during my visit, they have been updated on plan of care, all questions answered, they agreed and understood all the information provided. Total time spent more than 35 minutes. JOE KRISHNA MD Dec 26, 2023 12:00
--- NOTE | 2023-12-26 12:02 | CONS ---
[facility] Cardiology Consultation Note Cardiology progress note dictated for Daisy Pineda MD Date of service 12/26/2023 Chief complaint: Diarrhea, weakness Reason for consult: Bradycardia History of present illness this is a 68-year-old male resident of the [facility] with medical history of intellectual developmental disability and cerebral palsy. Was brought in for evaluation watery stools and becoming weak and lethargic. Patient is unable to answer questions information was gathered from review of medical records, nurse and family at bedside. Cardiol ogy consult was requested due to bradycardia. Patient was on metoprolol 25 mg p.o. b.i.d. prior to admission but now on hold. He does have a history of hypothyroidism with a TSH of 5.21. Plan was set to discharge patient today but due to bradycardia discharge was held. On telemetry lowest heart rate has been 46 beats per minute majority of the time average heart rate is 50 to 70 beats per minute. Twelve lead EKG no acute findings no heart block noted. Fourteen point review of systems: Unable to obtain Past medical history: Positive for cerebral palsy, mental retardation, anemia, asthma, hyperlipidemia, hypertension, hypothyroidism, seizure disorder. Past surgical history: Colostomy Social history: Patient is a resident of the [facility] with no alcohol cigarettes or illicit drug use Family history: Noncontributory Review of blood work: Results are from December 23 sodium 134 potassium 3.5 BUN of five and a creatinine of 0.4 with a normal GFR. BNP on admission was a 24. CBC with hemoglobin of 10.3 hematocrit 29.3 white blood cells of 3.7 and platelets of 230. In-house medication pantoprazole, multivitamin, levothyroxine, atorvastatin simethicone, folic acid. Physical exam: Blood pressure 111/57 with a heart rate of 45 beats per minute and regular normal S1-S2 no rubs gallops murmurs noted. Neck is supple no jugular vein distention no carotid bruits. Bilateral breath sounds are clear to auscultation and lower extremities no edema no cyanosis. Patient is alert awake. Assessment: Asymptomatic bradycardia Hypothyroidism Cerebral palsy Anemia Asthma Hyperlipidemia Hypertension Seizure disorder Plan: At this point we have a 68-year-old male presented from the [facility] in [place] for evaluation of watery stools and generalized weakness. He is bed-bound has a history of cerebral palsy and resides at [facility]. Cardiology consult was requested due to episode of bradycardia. Currently the patient has a heart rate of 45 beats per minute on telemetry sinus bradycardia. Patient was ready to be discharged when low heart rate was noted 2D echocardiogram has been ordered. He was taking metoprolol 25 mg b.i.d. we can decrease dosage to 12.5 mg p.o. b.i.d.. We will continue patient on telemetry pending results of 2D e chocardiogram. Addendum: The patient's 2D echo showed normal systolic LV function. However the right ventricle is dilated and hypokinetic. By Doppler there was no sign of intracardiac shunt or significant valvular disease. There was no pericardial effusion. Have had a discussion with the family. At this point he has no clubbing or cyanosis Homans sign is negative there was no calf tenderness no murmurs are audible. We have mutually decided to check a D-dimer test and if this is abnormal proceed with workup for pulmonary embolism. If however the D- dimer test is normal they do not want to pursue any additional cardiac diagnosis in this gentleman with advanced cerebral palsy. \ATTESTATION BY PHYSICIAN I have seen and examined the patient. I reviewed the documentation, medical decision making, and treatment plan as noted by the mid-level provider above. I agree with the findings and plan of care. DAISY PINEDA MD, [facility] Dec 26, 2023 12:01 DAISY PINEDA MD Dec 26, 2023 12:35
--- NOTE | 2023-12-26 14:30 | HMCSR ---
APPROVED REPORT EXAM: Two-dimensional and M-mode echocardiogram with Doppler and color Doppler. INDICATION ICD: Bradycardia R00.1 2D Dimensions RVDd4.1 cmLVEF(%)52.9 (>50%)LVED Vol(simp.)104.0 mL IVSd0.4 (0.7-1.1cm)FS(%)27 %LVES Vol(simp.)40.4 mL LVDd4.8 (3.8-5.6cm)LA (2D)3.4 (1.6-4.0cm)LVEF(%, simp.)61 % PWd0.9 (0.7-1.1cm)Ao Root(2D)3.9 (2.0-3.7cm)LA ESV INDEX (4CH)14.60 mL/m2 IVSs0.7 cmLVOT diam2.2 (1.8-2.4cm) LVDs3.5 (2.5-4.0cm) PWs0.9 cm M-Mode Dimensions EPSS1.0 cm LA (MM)3.6 (1.6-4.0cm) Ao Root(MM)3.9 (2.0-3.7cm) Aortic Valve AoV VTI0.4 mAo Mean GR5.0 mmHgLVOT VTI0.20 m LEONARD (VMAX)1.9 cm2AVA (VTI) 1.9 cm2 Mitral Valve MV E Vmax78.6 cm/sDECEL Uvnt295 ms MV A Vmax66.9 cm/sP 1/2 T58 ms E/A ratio1.2MVA (PHT)3.8 cm2 TDI E/E' Medial9.2E/E' Lateral9.6 Medial E' Peak V8.50 cm/sLateral E' Peak V8.20 cm/s Pulmonary Valve PV Vmax0.8 m/s PV Peak GR2.6 mmHg Tricuspid Valve TR Vmax1.6 m/s TR Peak GR10.2 mmHg Left Ventricle Left ventricular cavity size is normal. There is normal LV segmental wall motion. There is normal lef t ventricular wall thickness. LVEF is 55-60%. Indeterminate diastolic dysfunction. Right Ventricle The right ventricle is moderately dilated. The right ventricular systolic function is normal. Atria The left atrium size is normal. The right atrium size is normal. Aortic Valve Aortic valve is trileaflet and opens well. Right coronary cusp leaflet has nodular calcification. No aortic regurgitation is present. There is no aortic valvular stenosis. Mitral Valve The mitral valve is normal in structure and function. There is no mitral valve regurgitation noted. T here is no mitral valve stenosis. Tricuspid Valve The tricuspid valve leaflets appear myxomatous and open well. There is trace of tricuspid valve regur gitation noted. Pulmonic Valve Pulmonic valve is not well visualized. There is no pulmonic valvular regurgitation. Great Vessels The aortic root is normal in size. The IVC is normal in size and collapses >50% with inspiration. Pericardium The pericardium appears normal. Other Information Quality : Technically difficult study due to body habitus. Pt has left arm contracted over left side of chest Conclusion The right ventricle is moderately dilated. LVEF is 55-60%.
--- NOTE | 2023-12-26 15:08 | EKG ---
[facility] Test Date: 2023-12-26 Test Time: 10:00:20 Pat Name: SERENITY LOWE Department: [facility] Room: 332 1 Gender: M Network Systems Engineer: [id number] [phone] [id number] Requested By: JOE KRISHNA Order Number: [id number] Reading MD: Jarrett Becerra Measurements Intervals [place] Rate: 48 P: 49 NH: 164 QRS: -11 QRSD: 92 T: 30 QT: 468 QTc: 418 Interpretive Statements Sinus bradycardia Low voltage QRS Cannot rule out Anterior infarct , age undetermined Compared to ECG 12/17/2023 20:01:07 Myocardial infarct finding now present Sinus rhythm no longer present Left-axis deviation no longer present Electronically Signed On 12-26-2023 17:34:57 STERILIZATION SPECIALIST by Jarrett Becerra Please click the below link to view image of tracing.
[2023-12-26] MEDS ORDERED: IOHEXOL 350 MG/ML 100ML INFUS..BTL IV ONE (15:26)
--- NOTE | 2023-12-26 16:30 | PN ---
FOLLOWUP PROGRESS NOTE SUBJECTIVE: A 68-year-old male with a history of intellectual disability. The patient initially presented with acute renal failure as well as electrolyte abnormalities. The patient did have extensive GI workup. The patient now tolerating a diet without difficulty. The patient was noted to have bradycardia and is to be seen by surgical service and he is being seen for all the above. REVIEW OF SYSTEMS: He is really unable to give any formal review of systems. OBJECTIVE: VITAL SIGNS: Blood pressure 111/57, pulse in the 40s. GENERAL: He is a chronically ill male, lying in bed on medical floor. HEENT: Head is atraumatic. Pupils equal, roving to light. Oropharynx is without exudate. Nares clear. NECK: There is no JVP. There is no thyromegaly, no mass. CARDIOVASCULAR: Regular. There is no S3, S4 gallop. LUNGS: Coarse with equal thoracic movement. ABDOMEN: Soft, nondistended, nontender. EXTREMITIES: No clubbing, no cyanosis. NEUROLOGIC: He is unchanged. LABORATORY DATA: Sodium 134, potassium 3.5, BUN 5, creatinine 0.4. IMPRESSION: 1. Renal dysfunction. 2. Hyponatremia with volume depletion. 3. History of intellectual disability. 4. Bradycardia. PLAN: The patient's creatinine is much improved. The patient's serum sodium is also improved. He is now tolerating a diet without difficulty. The patient was noted to have bradycardia and is to be seen by Cardiology. We will continue to follow closely. Once the patient is discharged, he can follow up in the Renal Clinic. TID: [id number] RECEIPT: [id number]
--- NOTE | 2023-12-26 16:38 | HMCIMG ---
CT CHEST PE PROTOCOL WWO CONT HISTORY: ELEVATED DDIMER, RULE OUT PE TECHNIQUE: CT CHEST PE PROTOCOL WWO CONT. Omnipaque contrast was given.. Coronal, sagittal and MIP reformats were obtained. CT was performed with one or more of the following dose reduction techniques: Automated exposure control, adjustment of the mA and/or kV according to the patient's size, or use of the iterative reconstruction technique. FINDINGS: Small bilateral pleural effusion with patchy airspace consolidation bilateral lower lobe concerning for pneumonia. Mild atelectasis seen in the inferior lingula. Focal consolidation versus nodule seen in the left upper lobe. Follow-up CT chest in 6-8 weeks recommended to assess stability. No pulmonary embolus is identified. There is mild cardiomegaly. There is no pericardial effusion. There is atherosclerotic changes of the aorta and coronary arteries. There is no acute findings in the visualized upper abdomen. Degenerative changes of the spine are noted. IMPRESSION: 1. Small bilateral pleural effusion with patchy airspace consolidation bilateral lower lobe concerning for pneumonia. Mild atelectasis seen in the inferior lingula. Focal consolidation versus nodule seen in the left upper lobe. Follow-up CT chest in 6-8 weeks recommended to assess stability. 2. No pulmonary embolus is identified.
[2023-12-26] MEDS: VITAMIN D3 PO SCH (17:00)
[2023-12-26] MEDS: CALCIUM CITRATE PO SCH (17:00)
[2023-12-26] MEDS: metoPROLOL tartRATE 25 MG TAB PO SCH (21:43)
[2023-12-26] MEDS: atorVAStatin 10 MG TABLET PO SCH (21:43)
[2023-12-27] VITALS: BP 106/65; PULSE 61; RESP 18; TEMP 98
[2023-12-27 04:00] VITALS: BP 113/64; PULSE 55; RESP 16; TEMP 98.2
[2023-12-27 05:30] LABS: HEMATOCRIT 31.6 % (42-54); MEAN CORPUSCULAR HEMOGLOBIN 33.4 pg (27.0-33.0); MEAN CORPUSCULAR HGB CONC 33.9 g/dL (32.0-36.0); MEAN CORPUSCULAR VOLUME 98.8 fL (79-99); RED BLOOD CELL COUNT(AUTO) 3.2 MIL/uL (4.50-6.20); RED CELL DISTRIBUTION WIDTH 11.8 % (11.0-15.5); WHITE BLOOD COUNT (AUTO) 5.4 K/uL (4.8-10.8)
[2023-12-27 05:46] LABS: ALBUMIN 2.2 g/dL (3.5-5.0); BILIRUBIN,TOTAL 0.1 mg/dL (0.2-1.0); CREATININE 0.5 mg/dL (0.5-1.3); MAGNESIUM 1.9 mg/dL (1.80-2.40); TOTAL PROTEIN, SERUM 5.3 g/dL (6.0-8.3)
[2023-12-27] MEDS: levoTHYROxine 112 MCG TABLET PO SCH (05:54)
[2023-12-27 08:00] VITALS: BP 134/68; PULSE 64; RESP 17; TEMP 98.6
[2023-12-27 10:00] VITALS: O2SAT 92
--- NOTE | 2023-12-27 10:13 | DS ---
Discharge Summary Hospital Course Summary: The patient initially admitted to the hospital December 18, 2023 with the following history of the present illness: This is a 68-year-old male resident of [facility] with past medical history of intellectual developmental disability, cerebral palsy , mental retardation ,anemia, asthma, hyperlipidemia, hypertension, hypothyroidism and seizure disorder who was brought by EMS to the ED for complaints of generalized body weakness, diarrhea and lethargy. Reportedly patient has been having episodes of watery stools and has been becoming weak and lethargic. Information and details are gathered from ER MD and primary nurse and [facility] as patient is unable to give information due to cognitive impairment. Seen and examined patient in the ER asleep but arousable respiration even and nonlabored he is comfortable in apparent no distress. In the emergency room Latest vital signs temperature 98.1, heart rate 71, blood pressure 120/67, saturation 100% in room air. In the emergency room Labs: WBC 11.8 with negative left shift of neutrophils 83, hemoglobin 16.8, hematocrit 46.9, platelet count 173. Sodium 118, chloride 87, BUN 50, glucose 148 AST 75 albumin three lipase 14. Initial Chest x-ray result is unremarkable. While in the ER patient received 1 L NS bolus and pending 1 L LR bolus to be given still per ER recommendation. The patient was admitted to the hospital. CT of the abdomen and pelvis without contrast was done, reported as follows: CT ABDOMEN/PELVIS W/O CONTRAST HISTORY: Vomiting COMPARISON: None TECHNIQUE: Multiple sequential axial images of the abdomen and pelvis were obtained from the dome of the diaphragm through symphysis pubis. Patient was not given contrast through intravenous route. Oral contrast was not given. FINDINGS: The study is limited due to patient's underlying body habitus. Tiny left pleural effusion is seen with subsegmental atelectasis. Mild left lower lung pulmonary infiltrates are seen. There is gastric distention. Small bowel dilatation is seen. There appears to be portal venous air. Degenerative changes of the thoracolumbar spine are present. The heart is not enlarged. There is gastric distention. Small bowel dilatation is seen. There appears to be portal venous air. Findings may be related to ischemic process and clinical correlation is recommended. Extensive small bowel dilatation is seen. Colonic distention is also seen. The liver, spleen, adrenal glands and pancreas are unremarkable. There is no evidence of hydronephrosis bilaterally. Tiny bilateral renal pelvic stones are seen. Fecal material is seen in the colon. There is diverticulosis. There are normal size retroperitoneal and mesenteric lymph nodes. No ascites is seen. Atherosclerotic changes are present. Pelvic sidewalls are symmetric bilaterally. Bladder is markedly distended with bladder stones. IMPRESSION: 1. Limited study due to patient's underlying condition body habitus. Gastric distention with small bowel dilatation and colonic distention noted. Fecal material is seen in the colon. Small bilateral renal pelvic stones are seen. Intrahepatic portal venous air is seen related to ischemic process. Bladder stones are seen. Consultation with supportive employment case manager was requested, and EGD was done 12/25/2023, with findings of diffuse severe inflammation characterized by congestion/edema/erythema, granularity and nodular changes in the entire examined stomach, status post biopsied. Patient has been started on Protonix 40 mg p.o. daily per GI recommendations. Gastric emptying test done, normal study. Currently the patient is on GI soft/bland diet, tolerating well, passing gas, output noted in the colostomy bag. Patient noted to be bradycardic, however asymptomatic, BP has remained stable. He has a history of hypothyroidism, he is currently on Synthroid. Review of home medications he takes metoprolol tartrate 25 mg p.o. b.i.d., this has been placed on hold. A 12 lead EKG ordered today shows sinus bradycardia with a low- voltage QRS. Echocardiogram ordered to rule out possible pericardial effusion. Right ventricle is moderately dilated, LVEF 55-60%, no pericardial effusion. Discussed with sand worker, recommended D-dimer to out possible PE, D-dimer elevated, greater than 2000, we will CT of the chest no evidence of PE. No further workup from cardiology standpoint. During the course of the hospitalization patient responded satisfactorily to medical management, today he is at baseline, plan for the patient to be discharged from the hospital. Electric Meter Technician(s): Cardiology, Nephrology, GI. Assessment/Plan: Final diagnosis Electrolyte imbalance, Severe hyponatremia Na 118 most likely due to dehydration POA Electrolyte imbalance hypokalemia K 3.6, hypomagnesemia mg 1.5 Acute dehydration POA Suspected gastroenteritis POA Uncontrolled diabetes mellitus type 2 with hypoglycemia POA Functional quadriplegia POA Protein calorie malnutrition POA Colostomy status Uncontrolled hypertension Intellectual developmental disability POA Acute Multifactorial Anemia POA Asthma not acute POA Hyperlipidemia POA Sinus bradycardia Discharge Instructions: The patient to be discharged from the hospital today, to follow with primary care physician as an outpatient and to return to hospital if condition changes. Family at bedside, agreed and understood the information provided. Home Medications: Active Scripts Amoxicillin/Potassium Clav (Amox Tr-K Clv 875-125 mg Tab) 875 Mg-125 Mg Tablet, 1 TAB PO BID for 10 Days, #20 TAB 0 Refills Prov:VICTORIA BERNAL GORE SEAMER 12/21/23 Phenytoin Sodium Extended (Dilantin Kapseal) 100 Mg Ercap, 200 MG PO TID, #60 CAP.EC Prov:VICTORIA BERNAL GORE SEAMER 12/21/23 Levetiracetam (Keppra) 500 Mg Tablet, 1000 MG PO BID, #60 TAB Prov:VICTORIA BERNAL GORE SEAMER 12/21/23 Reported Medications Zonisamide (Zonisamide) 100 Mg Capsule, 3 CAP PO BID for 30 Days, #60 CAP 0 Refills 12/18/23 Cholecalciferol (Vitamin D3) (Vitamin D3) 50 Mcg (2000 Unit) Tablet, 2 TAB PO DAILY for 30 Days, #30 TAB 0 Refills 12/18/23 Tamsulosin HCl (Flomax) 0.4 Mg Cap.er.24h, 1 CAP PO QODAY for 30 Days, #30 CAP 0 Refills 12/18/23 Sodium Chloride (Sodium Chloride) 1,000 Mg Tab, 1000 MG PO BID, TAB 12/18/23 Simethicone (Simethicone) 80 Mg Tab.chew, 1 TAB PO TID for gas for 6 Days, #20 TAB 0 Refills 12/18/23 Phenytoin Sodium Extended (Phenytoin Sodium Extended) 200 Mg Capsule, 1 CAP PO TID for 30 Days, #60 CAP 0 Refills 12/18/23 Multivitamin (Multivitamin) 1 Each Tablet, 1 TAB PO DAILY for 30 Days, #30 TAB 0 Refills 12/18/23 Metoprolol Tartrate (Metoprolol Tartrate) 25 Mg Tablet, 1 TAB PO BID for 30 Days, #60 TAB 0 Refills 12/18/23 Levothyroxine Sodium (Levothyroxine) 112 Mcg Capsule, 1 CAP PO DAILY for 30 Days, #30 CAP 0 Refills 12/18/23 Lactulose (Lactulose) 10 Gram/15 Ml Solution, 30 ML PO BID for constipation, #500 ML 0 Refills 12/18/23 L. Rhamnosus GG/Inulin (Culturelle Capsule) 10 Billion Cell-200 Mg Cap.sprink, 1 CAP PO DAILY for 30 Days, #30 CAP 0 Refills 12/18/23 Folic Acid (Folvite) 1 Mg Tab, 1 TAB PO DAILY for 30 Days, #30 TAB 0 Refills 12/18/23 Cyanocobalamin (Vitamin B-12) (B-12) 1,000 Mcg Tablet.er, 1 TAB PO DAILY for 30 Days, #30 TAB 0 Refills 12/18/23 Cetirizine HCl (Cetirizine HCl) 10 Mg Tablet, 1 TAB PO DAILY for allergy symptoms for 30 Days, #30 TAB 0 Refills 12/18/23 Calcium Citrate/Vitamin D3 (Calcium Citrate - Vit D Tablet) 315 Mg Calcium-5 Mcg (200 Unit) Tablet, 1 EACH PO DAILYDINNER, TAB 12/18/23 Carbamazepine (Carbamazepine ER) 400 Mg Tab.er.12h, 2 TAB PO BID for 30 Days, #60 TAB 0 Refills 12/18/23 Atorvastatin Calcium (Atorvastatin Calcium) 10 Mg Tablet, 1 TAB PO HS for 30 Days, #30 TAB 0 Refills 12/18/23 Aspirin (Aspirin EC) 81 Mg Tablet.dr, 1 TAB PO DAILY for 30 Days, #30 TAB 0 Refills 12/18/23 Amlodipine Besylate (Amlodipine Besylate) 10 Mg Tablet, 1 TAB PO DAILY for 30 Days, #30 TAB 0 Refills 12/18/23 Time spent arranging discharge: 31-60 minutes JOE KRISHNA MD Dec 27, 2023 10:13
[2023-12-27] MEDS: PANTOPrazole 40 MG TAB DR PO SCH (10:24)
[2023-12-27] MEDS: MULTIVITAMIN TABLET PO SCH (10:25)
--- NOTE | 2023-12-27 11:01 | PN ---
Asymptomatic bradycardia Hypothyroidism Cerebral palsy Anemia Asthma Hyperlipidemia Hypertension Seizure disorder We were asked to see a patient with hypothyroidism and cerebral palsy for bradycardia with minimum heart rate 46 per minute, asymptomatic. Metoprolol dose was reduced and this could be discontinued if necessary, and there have been no Tom arrhythmias worthy of treatment. Vital signs are stable. Patient has a advanced developmental disability and disability related to cerebral palsy, offers no history. Vitals/Labs Vital Signs Date Time Temp Pulse Resp B/P (MAP) Pulse Ox O2 Delivery O2 Flow Rate FiO2 12/27/23 08:00 98.6 64 17 134/68 92 Room Air 0.0 12/26/23 20:30 21 Laboratory Tests 12/27/23 05:18 Medications Current Medications Lactated Ringer's 1,000 ml @ 0 mls/hr ONCE ONCE IV Last administered on 12/17/23at 21:22; Start 12/17/23 at 20:00; Stop 12/17/23 at 20:01; Status DC Sodium Chloride 1,000 ml @ 0 mls/hr ONCE ONCE IV Last administered on 12/18/23at 01:12; Start 12/18/23 at 00:00; Stop 12/18/23 at 00:01; Status DC Acetaminophen 650 mg Q6H PRN PO; Start 12/18/23 at 02:00; Stop 01/17/24 at 01:59 Acetaminophen 650 mg Q4H PRN PO; Start 12/18/23 at 02:00; Stop 01/17/24 at 01:59 Ondansetron HCl 4 mg Q6H PRN IV; Start 12/18/23 at 02:00; Stop 01/17/24 at 01:59 Sodium Chloride 1,000 ml @ 100 mls/hr Q10H IV Last administered on 12/24/23at 00:38; Start 12/18/23 at 02:00; Stop 12/24/23 at 18:15; Status DC Metronidazole/ Sodium Chloride 100 ml @ 100 mls/hr Q8H IV; Start 12/18/23 at 02:00; Stop 12/18/23 at 02:38; Status DC Famotidine 20 mg BID IV Last administered on 12/26/23at 09:40; Start 12/18/23 at 09:00; Stop 12/26/23 at 11:15; Status DC Ceftriaxone Sodium 1 gm Q24H IVPB Last administered on 12/27/23at 02:54; Start 12/18/23 at 02:00; Stop 12/27/23 at 04:59; Status DC Carbamazepine 800 mg BID PO Last administered on 12/18/23at 20:45; Start 12/18/23 at 16:30; Stop 12/20/23 at 16:00; Status DC Home Med (Phenytoin Sodium Exten... TID PO; Start 12/18/23 at 14:00; Stop 12/18/23 at 16:24; Status DC Aspirin 81 mg DAILY PO Last administered on 12/27/23at 10:25; Start 12/19/23 at 09:00; Stop 01/18/24 at 08:59 Amlodipine Besylate 10 mg DAILY PO Last administered on 12/27/23at 10:25; Start 12/19/23 at 09:00; Stop 01/18/24 at 08:59 Phenytoin Sodium 200 mg TID PO Last administered on 12/27/23at 10:23; Start 12/18/23 at 16:30; Stop 01/17/24 at 16:29 Potassium Chloride 100 ml @ 100 mls/hr AD PRN IV; Start 12/19/23 at 10:30; Stop 12/23/23 at 10:38; Status DC Potassium Chloride 20 meq AD PRN PO; Start 12/19/23 at 10:30; Stop 01/18/24 at 10:29 Potassium Chloride 20 meq AD PRN PO Last administered on 12/19/23at 14:13; Start 12/19/23 at 10:30; Stop 01/18/24 at 10:29 Potassium Chloride 40 meq ONCE ONCE PO Last administered on 12/20/23at 14:15; Start 12/20/23 at 13:30; Stop 12/20/23 at 13:31; Status DC Magnesium Sulfate 50 ml @ 0 mls/hr PROTOCOL IV Last administered on 12/20/23at 14:16; Start 12/20/23 at 13:30; Stop 12/23/23 at 10:38; Status DC Sodium Chloride 1,000 mg ONCE ONCE PO Last administered on 12/20/23at 14:15; Start 12/20/23 at 13:30; Stop 12/20/23 at 13:31; Status DC Levetiracetam 1,000 mg BID PO Last administered on 12/27/23at 10:24; Start 12/20/23 at 16:00; Stop 01/19/24 at 15:59 Lactulose 20 gm ONCE ONCE PO Last administered on 12/21/23at 17:45; Start 12/21/23 at 17:00; Stop 12/21/23 at 17:01; Status DC Simethicone 40 mg QID PRN PO; Start 12/21/23 at 17:00; Stop 01/20/24 at 16:59; Status Cancel Simethicone 40 mg QID PRN PO Last administered on 12/21/23at 17:46; Start 12/21/23 at 17:30; Stop 01/20/24 at 17:29 Potassium Chloride 40 meq ONCE ONCE PO Last administered on 12/22/23at 12:50; Start 12/22/23 at 10:00; Stop 12/22/23 at 10:10; Status DC Guaifenesin/ Dextromethorphan 10 ml Q4H PRN PO; Start 12/23/23 at 09:30; Stop 01/22/24 at 09:29 Magnesium Sulfate 50 ml @ 0 mls/hr PROTOCOL IV; Start 12/23/23 at 11:00; Stop 12/26/23 at 08:36; Status DC Potassium Chloride 100 ml @ 50 mls/hr ONCE ONCE IV Last administered on 12/23/23at 14:48; Start 12/23/23 at 11:00; Stop 12/23/23 at 12:59; Status DC Potassium Chloride 100 ml @ 100 mls/hr AD PRN IV; Start 12/23/23 at 11:00; Stop 01/22/24 at 10:59 Midazolam HCl 2 mg STK-MED ONCE .ROUTE; Start 12/25/23 at 07:52; Stop 12/25/23 at 07:53; Status DC Propofol 200 mg STK-MED ONCE IV; Start 12/25/23 at 07:53; Stop 12/25/23 at 07:53; Status DC Potassium Chloride 100 ml @ 50 mls/hr ONCE ONCE IV Last administered on 12/26/23at 09:40; Start 12/26/23 at 09:00; Stop 12/26/23 at 10:59; Status DC Magnesium Sulfate 50 ml @ 0 mls/hr PROTOCOL IV Last administered on 12/26/23at 09:40; Start 12/26/23 at 09:00; Stop 12/26/23 at 11:22; Status DC Atorvastatin Calcium 10 mg HS PO Last administered on 12/26/23at 21:43; Start 12/26/23 at 21:00; Stop 01/25/24 at 20:59 Folic Acid 1 mg DAILY PO Last administered on 12/27/23at 10:25; Start 12/26/23 at 09:00; Stop 01/25/24 at 08:59 Simethicone 80 mg TID PO Last administered on 12/27/23at 10:25; Start 12/26/23 at 09:00; Stop 01/25/24 at 08:59 Tamsulosin HCl 0.4 mg QODAY PO Last administered on 12/27/23at 10:22; Start 12/26/23 at 09:00; Stop 01/25/24 at 08:59 Home Med Calcium Citrate/ Vitamin... DAILYDINNER PO; Start 12/26/23 at 17:00; Stop 01/25/24 at 16:59 Cetirizine HCl 10 mg DAILY PO Last administered on 12/27/23at 10:24; Start 12/26/23 at 09:00; Stop 01/25/24 at 08:59 Vitamin B Complex 1,000 mcg DAILY PO Last administered on 12/27/23at 10:24; Start 12/26/23 at 09:00; Stop 01/25/24 at 08:59 Lactobacillus Rhamnosus 1 each DAILY PO Last administered on 12/27/23at 10:25; Start 12/26/23 at 09:00; Stop 01/25/24 at 08:59 Lactulose 20 gm BID PO Last administered on 12/27/23at 10:25; Start 12/26/23 at 09:30; Stop 01/25/24 at 09:29 Levothyroxine Sodium 112 mcg SYN PO Last administered on 12/27/23at 05:54; Start 12/27/23 at 06:30; Stop 01/26/24 at 06:29 Multivitamins Therapeutic 1 tab DAILY PO Last administered on 12/27/23at 10:25; Start 12/27/23 at 09:00; Stop 01/26/24 at 08:59 Sodium Chloride 1,000 mg BID PO Last administered on 12/27/23at 10:24; Start 12/26/23 at 09:00; Stop 01/25/24 at 08:59 Zonisamide 300 mg BID PO Last administered on 12/27/23at 10:24; Start 12/26/23 at 09:00; Stop 01/25/24 at 08:59 Carbamazepine 800 mg BID PO Last administered on 12/27/23at 10:23; Start 12/26/23 at 09:00; Stop 01/25/24 at 08:59 Magnesium Sulfate 50 ml @ 0 mls/hr PROTOCOL IV; Start 12/26/23 at 11:30; Stop 01/25/24 at 11:29 Potassium Chloride 40 meq ONCE ONCE PO; Start 12/26/23 at 11:30; Stop 12/26/23 at 11:31; Status DC Pantoprazole Sodium 40 mg DAILY PO Last administered on 12/27/23at 10:24; Start 12/27/23 at 09:00; Stop 01/26/24 at 08:59 Metoprolol Tartrate 12.5 mg BID PO Last administered on 12/27/23at 10:24; Start 12/26/23 at 21:00; Stop 01/25/24 at 20:59 Iohexol 35,000 mg STK-MED ONCE IV; Start 12/26/23 at 15:26; Stop 12/26/23 at 15:26; Status DC DIPAK BENNETT MD Dec 27, 2023 11:01
--- NOTE | 2023-12-27 11:11 | HMCIMG ---
US VENOUS DOPPLER BILATERAL INDICATION: Swelling. RULE OUT DVT TECHNIQUE: Real-time venous Doppler ultrasound was performed using B mode, color flow and spectral analysis. FINDINGS: The visualized greater saphenous junction, common femoral, deep femoral, superficial femoral, popliteal and posterior tibial veins demonstrate normal compressibility and flow. No DVT is identified. IMPRESSION: No evidence of DVT in the visualized bilateral extremities.
--- NOTE | 2023-12-27 12:29 | PN ---
FOLLOWUP PROGRESS NOTE SUBJECTIVE: A 68-year-old male with history of intellectual disability. The patient initially presented, found to have significant nausea, vomiting and hyponatremia. The patient's serum sodium is much improved. The patient did have extensive GI workup in the hospital. The patient now tolerating a diet without difficulty. The patient is being seen by case management in regards to discharge back to the [facility]. REVIEW OF SYSTEMS: He is really unable to give any review of systems. PHYSICAL EXAMINATION:. VITAL SIGNS: Blood pressure is 134/68, pulse in the 60s. GENERAL: Chronically ill male, lying in bed on medical floor. HEENT: Head is atraumatic. Pupils equal, roving to light. Oropharynx is without exudate. Nares clear. NECK: There is no JVP. There is no thyromegaly, no mass. CARDIOVASCULAR: Regular. There is no S3, S4 gallop. LUNGS: Coarse with equal thoracic movement. ABDOMEN: Soft, nondistended, nontender. EXTREMITIES: Reveal no clubbing, no cyanosis. NEUROLOGIC: He is unchanged. LABORATORY DATA: Sodium 134, potassium is 4, BUN 5, creatinine 0.5, hemoglobin 10, hematocrit 31. IMPRESSION: 1. [id number] renal failure. 2. Hyponatremia. 3. Persistent nausea and vomiting. 4. Hypertension. PLAN: The patient's serum sodium has stabilized. He is encouraged with the fluid restriction. The patient's blood pressure is under adequate control. Bradycardia has resolved. The patient can safely be discharged from renal standpoint. The patient is discharged, he can follow up in the [facility]al [facility]. TID: [id number] RECEIPT: [id number]
== END 2023-12-27 15:00 | disposition home or self-care (01) | DRG 391 ==
LOC: EDH 19:22 → EDHIP 12-18 00:02 → 2AH 12-18 13:14 → 3AH 12-23 22:15
PROVIDERS: ADMIT Internal Medicine Sleep Medicine; ATTEND Internal Medicine Sleep Medicine
PROC: 4A00X4Z Measurement of Central Nervous Electrical Activity, External Approach (ICD-10-PCS; principal; 2023-12-20)
PROC: 0DB68ZX Excision of Stomach, Via Natural or Artificial Opening Endoscopic, Diagnostic (ICD-10-PCS; 2023-12-25)
DX: K52.9 Noninfective gastroenteritis and colitis, unspecified (principal); R53.2 Functional quadriplegia; N17.9 Acute kidney failure, unspecified; K56.609 Unspecified intestinal obstruction, unspecified as to partial versus complete obstruction; E87.1 Hypo-osmolality and hyponatremia; E46 Unspecified protein-calorie malnutrition; N39.0 Urinary tract infection, site not specified; K29.70 Gastritis, unspecified, without bleeding; E86.0 Dehydration; D64.9 Anemia, unspecified; E11.649 Type 2 diabetes mellitus with hypoglycemia without coma; K44.9 Diaphragmatic hernia without obstruction or gangrene; J45.909 Unspecified asthma, uncomplicated; F79 Unspecified intellectual disabilities; E87.6 Hypokalemia; E83.42 Hypomagnesemia; N18.9 Chronic kidney disease, unspecified; E11.22 Type 2 diabetes mellitus with diabetic chronic kidney disease; I12.9 Hypertensive chronic kidney disease with stage 1 through stage 4 chronic kidney disease, or unspecified chronic kidney disease; K31.89 Other diseases of stomach and duodenum; E03.9 Hypothyroidism, unspecified; E78.00 Pure hypercholesterolemia, unspecified; G40.909 Epilepsy, unspecified, not intractable, without status epilepticus; R62.7 Adult failure to thrive; Z93.3 Colostomy status; Z79.899 Other long term (current) drug therapy; Z68.23 Body mass index [BMI] 23.0-23.9, adult; R00.1 Bradycardia, unspecified
CPT/HCPCS: 36415; 43239; 71045; 71270; 74018; 74176; 78264; 80048; 80053; 80076; 80156; 80177; 81001; 82140; 82150; 82306; 82550; 82607; 83036; 83690; 83735; 83880; 83930; 84145; 84295; 84425; 84439; 84443; 84481; 85025; 85027; 85378; 87086; 87507; 93005; 93306; 93970; 95819; A4606; A9541; G0378; J0696; J2250; J2405; J2704; J3475; J3480; J3490; J7030; Q9967; A4215; A4222; A4223; A4620; A4657

== ENCOUNTER → 2024-04-06 | Outpatient (CLI) | payer MEDICARE ==
[~2024-04-06] MED LIST: ACET-3673 PO; ALBU2.5V2 NEB; AMLO10TA4 PO; ASPI-1443 PO; ATOR10TA69 PO; CALC-135 PO; CETI10TA57 PO; CHOL200052 PO; CYAN100084 PO; DOCO2CRE TP; FOLI1 PO; GUAI237S60 PO; LACT-441 PO; LACT1CAP60 PO; LEVE-43 PO; LEVO112C4 PO; METO25TA6 PO; MULT-1367 PO; ONDA-245 PO; PANT20TA18 PO; PHEN200C5 PO; SIME80TA12 PO; SODI100037 PO; TAMS-1 PO; ZONI100C87 PO; [UNRECOGNIZED DRUG - CODE] MC
== END | disposition home or self-care (01) ==
LOC: LAB 10:48
PROVIDERS: ATTEND Nurse Practitioner Family
DX: E87.1 Hypo-osmolality and hyponatremia (principal); R11.2 Nausea with vomiting, unspecified; R26.9 Unspecified abnormalities of gait and mobility
CPT/HCPCS: 36415; 80185